=== PATIENT | female | born 1950 | race Caucasian/White ===

== ENCOUNTER 2017-12-20 12:10 | Inpatient (IN) | payer MEDICARE, OTHER ==
[~2017-12-20] VITALS: Ht 160 cm; Wt 77.8 kg
[~2017-12-20 12:10] MED LIST: AMLO5TAB2 PO; AMOX1TAB64 PO; INDO25CA PO; INDO50CA PO; LACT1CAP35 PO; LACT1CAP43 PO; LISI1TAB5 PO; MULT1TAB11 PO; ONDA8TAB15 PO; OXYC-302 PO; OXYC1TAB8 PO; PARO20TA98 PO
[2017-12-20] MEDS ORDERED: SODIUM CHLORIDE 0.9% 1,000ML IVBOLUS ONE ×2 (12:30→13:30)
[2017-12-20] MEDS ORDERED: SODIUM CHLORIDE FLUSH 10ML SYR IVF ONE (12:30)
[2017-12-20] MEDS ORDERED: EPINEPHRINE SYRINGE 0.1 MG/ML, 10ML ONE (12:51)
[2017-12-20 12:58] LABS: BASOPHILS # (AUTO) 0.04 x10^3/uL (0-0.1); BASOPHILS % (AUTO) 0 % (0-1); EOSINOPHILS # (AUTO) 0.02 x10^3/uL (0-0.4); EOSINOPHILS % (AUTO) 0 % (1-7); LYMPHOCYTES # (AUTO) 2.97 x10^3/uL (1-3.4); LYMPHOCYTES % (AUTO) 22 % (22-44); MD NO; MEAN CORPUSCULAR HEMOGLOBIN 33.1 pg (27.0-34.8); MEAN CORPUSCULAR HGB CONC 33.3 g/dL (32.4-35.8); MEAN CORPUSCULAR VOLUME 99.4 fL (80-100); MONOCYTES # (AUTO) 0.26 x10^3/uL (0.2-0.8); MONOCYTES % (AUTO) 2 % (2-9); NEUTROPHILS # (AUTO) 10.25 x10^3/uL (1.8-6.8); NEUTROPHILS % (AUTO) 76 % (42-75); PLATELET COUNT 157 x10^3/uL (130-400); RED BLOOD COUNT 5.36 x10^6/uL (3.82-5.3); RED CELL DISTRIBUTION WIDTH 14.7 % (9.6-15.2)
[2017-12-20] MEDS ORDERED: PLEASE ENTER HEIGHT AND WEIGHT MC SCH (13:00)
[2017-12-20 13:09] LABS: ALBUMIN 3.4 g/dL (3.4-5.0); ANION GAP 14 mmol/L (5-15); CALCIUM 9.1 mg/dL (8.5-10.1); CHLORIDE 105 mmol/L (98-107)
[2017-12-20 13:12] LABS: ALANINE AMINOTRANSFERASE 43 U/L (12-78); ALKALINE PHOSPHATASE 110 U/L (45-117); BILIRUBIN,TOTAL 0.8 mg/dL (0.2-1.0); CREATININE 1.43 mg/dL (0.55-1.02); TROPONIN I < 0.015 ng/mL (0.000-0.045)
[2017-12-20] MEDS ORDERED: OMNIPAQUE 350 MG/ML, 100ML BOTTLE ONE (13:15)
[2017-12-20 13:37] LABS: INTERNATIONAL NORMALIZED RATIO 1.15 (0.93-1.1); PROTHROMBIN TIME 11.8 Seconds (9.6-11.5)
[2017-12-20] MEDS ORDERED: MIDAZOLAM 10MG/2 ML ONE (13:49)
[2017-12-20] MEDS ORDERED: FENTANYL PF 250 MCG/5ML ONE ×4 (13:49→13:51)
[2017-12-20] MEDS ORDERED: EPINEPHRINE 2 MG in SODIUM CHLORIDE 0.9% 248 ML IV SCH (14:00)
[2017-12-20] MEDS ORDERED: VANCOMYCIN 1,200 MG in SODIUM CHLORIDE 0.9% 250 ML IV PRN (14:00)
[2017-12-20] MEDS ORDERED: CEFUROXIME 1.5 GM in SODIUM CHLORIDE 0.9% 50 ML IVPB PRN (14:00)
[2017-12-20] MEDS ORDERED: MANNITOL PMX 20% 500 ML IVPB PRN (14:00)
[2017-12-20] MEDS ORDERED: POTASSIUM CHLORIDE 80 MEQ, SODIUM BICARBONATE 8.4% 10 MEQ, MAGNESIUM SULFATE 0.5 GM, LI... IV PRN (14:00)
[2017-12-20] MEDS ORDERED: DEXMEDETOMIDINE 200 MCG in SODIUM CHLORIDE 0.9% 48 ML IV SCH (14:00)
[2017-12-20] MEDS ORDERED: VANCOMYCIN 1,400 MG in SODIUM CHLORIDE 0.9% 250 ML IV PRN (14:00)
[2017-12-20] MEDS ORDERED: PHENYLEPHRINE 10 MG in SODIUM CHLORIDE 0.9% 249 ML IV PRN ×2 (14:00→18:56)
[2017-12-20] MEDS ORDERED: ALBUMIN HUMAN 5% 500 ML IV PRN (14:00)
[2017-12-20] MEDS ORDERED: REGULAR INSULIN 62.5 UNITS in SODIUM CHLORIDE 0.9% 249.375 ML IV PRN ×2 (14:00→18:56)
[2017-12-20] MEDS ORDERED: ROCURONIUM 10MG/ML,5ML ONE ×3 (16:11→16:12)
[2017-12-20] MEDS ORDERED: AMINOCAPROIC ACID 250 MG/ML, 20ML ONE ×2 (16:12)
[2017-12-20] MEDS ORDERED: PROPOFOL 10 MG/ML, 20ML ONE (16:12)
[2017-12-20] MEDS ORDERED: NITROGLYCERIN/D5W PMX 250 ML ONE (16:12)
[2017-12-20] MEDS ORDERED: CALCIUM CHLORIDE 10%, 10ML SYR ONE (16:13)
[2017-12-20] MEDS ORDERED: PROTAMINE SULFATE 10 MG/ML, 25ML ONE ×2 (16:13)
[2017-12-20] MEDS ORDERED: THROMBIN 5,000 UNIT VIAL TP ONE (17:18)
[2017-12-20] MEDS ORDERED: NOVOSEVEN RT (FACTOR VIIA) RECOMB 1,000 MCG IVPush ONE (18:30)
[2017-12-20] MEDS ORDERED: HYDROmorphone 2 MG/ML, 1ML ONE (18:35)
[2017-12-20] MEDS ORDERED: SODIUM CHLORIDE 0.9% 1,000 ML IV PRN (18:56)
[2017-12-20] MEDS ORDERED: LACTATED RINGERS 1,000 ML IV SCH (18:56)
[2017-12-20] MEDS ORDERED: NITROGLYCERIN/D5W PMX 250 ML IV PRN (18:56)
[2017-12-20] MEDS ORDERED: INSULIN REGULAR 100 UNITS/ML, 3ML VIAL IVPush PRN (19:00)
[2017-12-20] MEDS ORDERED: BISACODYL 10 MG SUPP PR PRN (19:00)
[2017-12-20] MEDS ORDERED: PROCHLORPERAZINE 5 MG/ML, 2ML IVPush PRN (19:00)
[2017-12-20] MEDS ORDERED: SODIUM BICARB 8.4%, 50ML SYRINGE IV PRN (19:00)
[2017-12-20] MEDS ORDERED: HYDROcodone/APAP 10/325 MG TABLET PO PRN (19:00)
[2017-12-20] MEDS ORDERED: DEXTROSE 50%, 50ML SYRINGE IVPush PRN (19:00)
[2017-12-20] MEDS ORDERED: BISACODYL 5 MG EC TABLET PO PRN (19:00)
[2017-12-20] MEDS ORDERED: ONDANSETRON 2MG/ML, 2ML IVPush PRN (19:00)
[2017-12-20] MEDS ORDERED: GLUCAGON 1 MG IM PRN (19:00)
[2017-12-20] MEDS ORDERED: EPINEPHRINE 2 MG in SODIUM CHLORIDE 0.9% 248 ML IV PRN (19:00)
[2017-12-20] MEDS ORDERED: MIDAZOLAM 1 MG/ML, 5ML IVPush PRN (19:00)
[2017-12-20] MEDS ORDERED: ACETAMINOPHEN 650 MG SUPP PR PRN (19:00)
[2017-12-20] MEDS ORDERED: MAGNESIUM SULFATE 1 GM in SODIUM CHLORIDE 0.9% 50 ML IVPB SCH (19:00)
[2017-12-20] MEDS ORDERED: CEFUROXIME 1.5 GM in SODIUM CHLORIDE 0.9% 50 ML IVPB SCH (19:00)
[2017-12-20] MEDS ORDERED: DEXTROSE 4 GM TAB.CHEW PO PRN (19:00)
[2017-12-20] MEDS: DOCUSATE 100 MG CAPSULE PO SCH ×2 (19:08→21:26)
[2017-12-20] MEDS ORDERED: HEPARIN 1,000 UNITS/ML, 30ML ONE (19:16)
[2017-12-20] MEDS ORDERED: SODIUM BICARB 8.4%, 50ML SYRINGE ONE (19:17)
[2017-12-20] MEDS ORDERED: SODIUM BICARBONATE 1 MEQ/ML, 50ML VIAL ONE (19:17)
[2017-12-20] MEDS ORDERED: LIDOCAINE 2% 100MG/5ML SYRINGE ONE (19:18)
[2017-12-20] MEDS ORDERED: ALBUMIN HUMAN 25% 50 ML ONE (19:18)
[2017-12-20] MEDS ORDERED: ALBUTEROL/IPRATROPIUM 2.5MG/0.5MG, 3 ML ONE (19:28)
[2017-12-20] MEDS ORDERED: ESMOLOL/NS PMX 250 ML IV PRN (19:30)
[2017-12-20 19:33] LABS: GLUCOSE BY BLOOD GAS ANALYZER 151 mg/dL (70-110); HEMOGLOBIN BY BLOOD GAS ANALYZ 13.3 g/dL (14.0-18.0); POTASSIUM BY BLOOD GAS ANALYZR 3.1 mmol/L (3.6-5.5)
[2017-12-20] MEDS ORDERED: POTASSIUM CHLORIDE 30 MEQ in SODIUM CHLORIDE 0.9% 100 ML IV ONE (20:00)
[2017-12-20] MEDS: KSCALE TO 4.5 IV SCH (20:11)
[2017-12-20] MEDS: DEXMEDETOMIDINE 200 MCG in SODIUM CHLORIDE 0.9% 48 ML IV PRN (20:45)
[2017-12-20] MEDS: INSULIN LISPRO 100 UNITS/ML, PEN SQ-INSULIN SCH (21:26)
[2017-12-20] MEDS: MUPIROCIN OINT 2%, 22GM NAS SCH (22:37)
[2017-12-20] MEDS: SODIUM CHLORIDE FLUSH 10ML SYR IVF SCH (22:37)
[2017-12-21] MEDS: CEFUROXIME 1.5 GM in SODIUM CHLORIDE 0.9% 50 ML IVPB SCH ×2 (00:34→13:15)
[2017-12-21] MEDS: KSCALE TO 4.5 IV SCH ×4 (01:21→13:00)
[2017-12-21 01:40] LABS: MICROSCOPIC AUTO
[2017-12-21 01:42] LABS: CULTURE INDICATED? NO
[2017-12-21] MEDS: morphine SULFATE 10 MG/ML, 1ML IVPush PRN ×3 (01:54→05:49)
[2017-12-21] MEDS: DEXMEDETOMIDINE 200 MCG in SODIUM CHLORIDE 0.9% 48 ML IV PRN (02:12)
[2017-12-21] MEDS ORDERED: ALBUTEROL/IPRATROPIUM 2.5MG/0.5MG, 3 ML ONE (02:15)
[2017-12-21 04:40] LABS: BASOPHILS # (AUTO) 0.02 x10^3/uL (0-0.1); BASOPHILS % (AUTO) 0 % (0-1); EOSINOPHILS % (AUTO) 0 % (1-7); LYMPHOCYTES # (AUTO) 0.56 x10^3/uL (1-3.4); LYMPHOCYTES % (AUTO) 5 % (22-44); MD NO; MEAN CORPUSCULAR HEMOGLOBIN 32.8 pg (27.0-34.8); MEAN CORPUSCULAR HGB CONC 33.3 g/dL (32.4-35.8); MEAN CORPUSCULAR VOLUME 98.7 fL (80-100); MEAN PLATELET VOLUME 8.7 fL (7.4-10.4); MONOCYTES # (AUTO) 0.73 x10^3/uL (0.2-0.8); MONOCYTES % (AUTO) 6 % (2-9); NEUTROPHILS # (AUTO) 10.46 x10^3/uL (1.8-6.8); NEUTROPHILS % (AUTO) 89 % (42-75); PLATELET COUNT 142 x10^3/uL (130-400); RED BLOOD COUNT 3.69 x10^6/uL (3.82-5.3); RED CELL DISTRIBUTION WIDTH 15.2 % (9.6-15.2)
[2017-12-21 04:51] LABS: ANION GAP 5 mmol/L (5-15); CALCIUM 7.2 mg/dL (8.5-10.1); CHLORIDE 112 mmol/L (98-107)
[2017-12-21 04:52] LABS: CREATININE 1.32 mg/dL (0.55-1.02)
[2017-12-21 05:00] VITALS: BP 112/58
[2017-12-21] MEDS ORDERED: ALBUTEROL SULFATE 2.5 MG/3 ML ONE (06:14)
[2017-12-21] MEDS: INSULIN LISPRO 100 UNITS/ML, PEN SQ-INSULIN SCH (07:00)
[2017-12-21] MEDS ORDERED: INSULIN LISPRO 100 UNITS/ML, PEN SQ-INSULIN PRN (07:30)
[2017-12-21] MEDS ORDERED: POTASSIUM CHLORIDE PMX 100 ML IV ONE ×2 (08:30)
[2017-12-21] MEDS: DOCUSATE 100 MG CAPSULE PO SCH ×2 (09:00→20:19)
[2017-12-21] MEDS: METOPROLOL TARTRATE 25 MG TABLET PO/NG SCH ×2 (09:00→20:19)
[2017-12-21] MEDS: MUPIROCIN OINT 2%, 22GM NAS SCH ×2 (10:33→20:20)
[2017-12-21] MEDS: SODIUM CHLORIDE FLUSH 10ML SYR IVF SCH ×2 (10:34→20:20)
[2017-12-21] MEDS: LACTATED RINGERS 1,000 ML IV PRN ×2 (12:00→14:13)
[2017-12-21] MEDS: ASPIRIN 81 MG TABLET EC PO SCH (12:31)
[2017-12-21] MEDS: OXYcodone IR 5MG TABLET PO PRN (12:31)
[2017-12-21] MEDS: PAROXETINE 20 MG TABLET PO SCH (12:31)
[2017-12-21] MEDS: HYDROcodone/APAP 5/325 TABLET PO PRN ×2 (15:28→21:38)
[2017-12-21] MEDS ORDERED: MAGNESIUM SULFATE 1 GM in STERILE WATER 25 ML IVPB SCH (15:30)
[2017-12-21] MEDS: MAGNESIUM SULFATE 1 GM in STERILE WATER 25 ML IVPB SCH (20:00)
[2017-12-21] MEDS: CHLORHEXIDINE 15 ML BOTTLE MM SCH (20:18)
[2017-12-22] MEDS: HYDROcodone/APAP 5/325 TABLET PO PRN ×3 (02:06→18:12)
[2017-12-22 04:00] VITALS: BP 100/52
[2017-12-22] MEDS: LACTATED RINGERS 1,000 ML IV PRN (04:16)
[2017-12-22] MEDS: OXYcodone IR 5MG TABLET PO PRN (04:33)
[2017-12-22 05:44] LABS: MEAN CORPUSCULAR HEMOGLOBIN 32.6 pg (27.0-34.8); MEAN CORPUSCULAR HGB CONC 32.8 g/dL (32.4-35.8); MEAN CORPUSCULAR VOLUME 99.3 fL (80-100); MEAN PLATELET VOLUME 9.6 fL (7.4-10.4); PLATELET COUNT 93 x10^3/uL (130-400); RED BLOOD COUNT 3.55 x10^6/uL (3.82-5.3); RED CELL DISTRIBUTION WIDTH 15.8 % (9.6-15.2)
[2017-12-22 05:51] LABS: CHLORIDE 109 mmol/L (98-107)
[2017-12-22 05:55] LABS: ANION GAP 6 mmol/L (5-15); CALCIUM 7.2 mg/dL (8.5-10.1); CREATININE 1.04 mg/dL (0.55-1.02)
[2017-12-22 06:10] LABS: MD YES
[2017-12-22 06:12] LABS: BAND#(MANUAL) 0.12 x10^3/uL; BANDS%(MANUAL) 1 % (0-7); LYMPH#(MANUAL) 3.07 x10^3/uL (1-3.4); LYMPHS% (MANUAL) 26 % (22-44); MONOS#(MANUAL) 0.94 x10^3/uL (0.3-2.7); MONOS% (MANUAL) 8 % (2-9); SEG#(MANUAL) 7.67 x10^3/uL (1.8-6.8); SEGS% (MANUAL) 65 % (42-75)
[2017-12-22 06:13] LABS: <PLATELET ESTIMATE> DECREASED; <PLT MORPHOLOGY> NORMAL PLT MORPH; ANISOCYTOSIS 1+
[2017-12-22] MEDS ORDERED: AMLODIPINE 5 MG TABLET PO ONE (08:30)
[2017-12-22] MEDS ORDERED: ENOXAPARIN 40 MG/0.4 ML SQ SCH (09:00)
[2017-12-22] MEDS ORDERED: POTASSIUM CHLORIDE 10 MEQ TABLET.ER PO SCH (09:00)
[2017-12-22] MEDS ORDERED: FUROSEMIDE 20 MG/2 ML IV SCH (09:00)
[2017-12-22] MEDS: CHLORHEXIDINE 15 ML BOTTLE MM SCH ×2 (09:49→21:24)
[2017-12-22] MEDS: DOCUSATE 100 MG CAPSULE PO SCH ×2 (09:49→21:24)
[2017-12-22] MEDS: MUPIROCIN OINT 2%, 22GM NAS SCH ×2 (09:49→21:23)
[2017-12-22] MEDS: FUROSEMIDE 20 MG/2 ML IV SCH ×2 (09:49→21:23)
[2017-12-22] MEDS: METOPROLOL TARTRATE 25 MG TABLET PO/NG SCH ×2 (09:50→21:22)
[2017-12-22] MEDS: ASPIRIN 81 MG TABLET EC PO SCH (09:50)
[2017-12-22] MEDS: POTASSIUM CHLORIDE 20 MEQ TAB.ER.PRT PO SCH (09:50)
[2017-12-22] MEDS: PAROXETINE 20 MG TABLET PO SCH (09:50)
[2017-12-22] MEDS: SODIUM CHLORIDE FLUSH 10ML SYR IVF SCH ×2 (09:51→21:23)
[2017-12-22] MEDS ORDERED: ALBUTEROL SULFATE 2.5 MG/3 ML NPPB PRN (17:00)
[2017-12-22] MEDS ORDERED: INSULIN LISPRO 100 UNITS/ML, PEN SQ-INSULIN PRN (18:00)
[2017-12-22] MEDS: INSULIN LISPRO 100 UNITS/ML, PEN SQ-INSULIN SCH (21:21)
[2017-12-22] MEDS: MAGNESIUM SULFATE 1 GM in STERILE WATER 25 ML IVPB SCH (21:23)
[2017-12-23] MEDS ORDERED: DIPHENHYDRAMINE 50 MG/ML, 1ML IVPush ONE (01:00)
[2017-12-23 04:00] VITALS: BP 159/84
[2017-12-23 05:37] LABS: CHLORIDE 101 mmol/L (98-107)
[2017-12-23 05:41] LABS: ANION GAP 11 mmol/L (5-15); CALCIUM 7.9 mg/dL (8.5-10.1); CREATININE 0.74 mg/dL (0.55-1.02)
[2017-12-23 06:05] LABS: BASOPHILS # (AUTO) 0.02 x10^3/uL (0-0.1); BASOPHILS % (AUTO) 0 % (0-1); EOSINOPHILS # (AUTO) 0.01 x10^3/uL (0-0.4); EOSINOPHILS % (AUTO) 0 % (1-7); LYMPHOCYTES # (AUTO) 1.09 x10^3/uL (1-3.4); LYMPHOCYTES % (AUTO) 10 % (22-44); MD SCAN; MEAN CORPUSCULAR VOLUME 97.3 fL (80-100); MEAN PLATELET VOLUME 10.3 fL (7.4-10.4); MONOCYTES % (AUTO) 6 % (2-9); NEUTROPHILS # (AUTO) 9.15 x10^3/uL (1.8-6.8); NEUTROPHILS % (AUTO) 84 % (42-75); PLATELET COUNT 96 x10^3/uL (130-400); RED BLOOD COUNT 3.65 x10^6/uL (3.82-5.3); RED CELL DISTRIBUTION WIDTH 14.8 % (9.6-15.2)
[2017-12-23] MEDS: INSULIN LISPRO 100 UNITS/ML, PEN SQ-INSULIN SCH ×4 (07:00→19:56)
[2017-12-23] MEDS: PAROXETINE 20 MG TABLET PO SCH (07:46)
[2017-12-23] MEDS: ASPIRIN 81 MG TABLET EC PO SCH (07:46)
[2017-12-23] MEDS: DOCUSATE 100 MG CAPSULE PO SCH ×2 (07:46→19:56)
[2017-12-23] MEDS: FUROSEMIDE 20 MG/2 ML IV SCH ×2 (07:46→08:53)
[2017-12-23] MEDS: METOPROLOL TARTRATE 25 MG TABLET PO/NG SCH ×3 (07:46→19:58)
[2017-12-23] MEDS: POTASSIUM CHLORIDE 20 MEQ TAB.ER.PRT PO SCH (07:46)
[2017-12-23] MEDS: CHLORHEXIDINE 15 ML BOTTLE MM SCH (07:48)
[2017-12-23] MEDS: SODIUM CHLORIDE FLUSH 10ML SYR IVF SCH ×2 (07:48→21:00)
[2017-12-23] MEDS: MUPIROCIN OINT 2%, 22GM NAS SCH ×2 (07:54→19:55)
[2017-12-23] MEDS ORDERED: POTASSIUM CHLORIDE 20 MEQ TAB.ER.PRT PO ONE (08:30)
[2017-12-23] MEDS: LISINOPRIL 5 MG TABLET PO SCH ×2 (09:00→19:57)
[2017-12-23] MEDS: ACETAMINOPHEN 325 MG TABLET PO PRN ×2 (12:00→19:57)
[2017-12-23] MEDS: MAGNESIUM SULFATE 1 GM in STERILE WATER 25 ML IVPB SCH (20:35)
[2017-12-24 04:00] VITALS: BP 123/70
[2017-12-24 05:32] LABS: CHLORIDE 103 mmol/L (98-107)
[2017-12-24 05:45] LABS: ANION GAP 7 mmol/L (5-15); CALCIUM 7.7 mg/dL (8.5-10.1); CREATININE 0.61 mg/dL (0.55-1.02)
[2017-12-24 06:50] LABS: BASOPHILS # (AUTO) 0.01 x10^3/uL (0-0.1); BASOPHILS % (AUTO) 0 % (0-1); EOSINOPHILS # (AUTO) 0.07 x10^3/uL (0-0.4); EOSINOPHILS % (AUTO) 1 % (1-7); LYMPHOCYTES # (AUTO) 1.82 x10^3/uL (1-3.4); LYMPHOCYTES % (AUTO) 15 % (22-44); MD SCAN; MEAN CORPUSCULAR HGB CONC 33.6 g/dL (32.4-35.8); MEAN CORPUSCULAR VOLUME 98.3 fL (80-100); MEAN PLATELET VOLUME 10.4 fL (7.4-10.4); MONOCYTES # (AUTO) 0.98 x10^3/uL (0.2-0.8); MONOCYTES % (AUTO) 8 % (2-9); NEUTROPHILS # (AUTO) 8.92 x10^3/uL (1.8-6.8); NEUTROPHILS % (AUTO) 76 % (42-75); PLATELET COUNT 128 x10^3/uL (130-400); RED BLOOD COUNT 3.74 x10^6/uL (3.82-5.3); RED CELL DISTRIBUTION WIDTH 15.1 % (9.6-15.2)
[2017-12-24] MEDS: INSULIN LISPRO 100 UNITS/ML, PEN SQ-INSULIN SCH ×2 (07:00→11:59)
[2017-12-24] MEDS: DOCUSATE 100 MG CAPSULE PO SCH ×2 (09:00→21:22)
[2017-12-24] MEDS ORDERED: MAGNESIUM HYDROXIDE 8%, 30ML UDC PO PRN (09:00)
[2017-12-24] MEDS: FUROSEMIDE 20 MG/2 ML IV SCH (09:15)
[2017-12-24] MEDS: METOPROLOL TARTRATE 25 MG TABLET PO/NG SCH ×2 (09:16→21:21)
[2017-12-24] MEDS: MUPIROCIN OINT 2%, 22GM NAS SCH ×2 (09:16→21:21)
[2017-12-24] MEDS: ASPIRIN 81 MG TABLET EC PO SCH (09:16)
[2017-12-24] MEDS: POTASSIUM CHLORIDE 20 MEQ TAB.ER.PRT PO SCH (09:16)
[2017-12-24] MEDS: SODIUM CHLORIDE FLUSH 10ML SYR IVF SCH ×3 (09:17→21:22)
[2017-12-24] MEDS: LISINOPRIL 10 MG TABLET PO SCH ×2 (09:17→21:21)
[2017-12-24] MEDS: PAROXETINE 20 MG TABLET PO SCH (09:17)
[2017-12-24 12:35] VITALS: BP 135/83
[2017-12-24] MEDS: ACETAMINOPHEN 325 MG TABLET PO PRN ×2 (13:49→18:34)
[2017-12-24 19:50] VITALS: BP 132/78
[2017-12-25] VITALS (7 sets, daily range): BP systolic 117–176; BP diastolic 73–97
[2017-12-25 04:56] LABS: BASOPHILS # (AUTO) 0.02 x10^3/uL (0-0.1); BASOPHILS % (AUTO) 0 % (0-1); EOSINOPHILS # (AUTO) 0.09 x10^3/uL (0-0.4); EOSINOPHILS % (AUTO) 1 % (1-7); LYMPHOCYTES # (AUTO) 1.34 x10^3/uL (1-3.4); LYMPHOCYTES % (AUTO) 18 % (22-44); MD NO; MEAN CORPUSCULAR HEMOGLOBIN 32.8 pg (27.0-34.8); MEAN CORPUSCULAR HGB CONC 33.7 g/dL (32.4-35.8); MEAN CORPUSCULAR VOLUME 97.1 fL (80-100); MEAN PLATELET VOLUME 9.8 fL (7.4-10.4); MONOCYTES # (AUTO) 0.59 x10^3/uL (0.2-0.8); MONOCYTES % (AUTO) 8 % (2-9); NEUTROPHILS # (AUTO) 5.41 x10^3/uL (1.8-6.8); NEUTROPHILS % (AUTO) 73 % (42-75); PLATELET COUNT 133 x10^3/uL (130-400); RED BLOOD COUNT 3.99 x10^6/uL (3.82-5.3); RED CELL DISTRIBUTION WIDTH 14.6 % (9.6-15.2)
[2017-12-25 05:05] LABS: ANION GAP 6 mmol/L (5-15); CALCIUM 7.9 mg/dL (8.5-10.1); CHLORIDE 102 mmol/L (98-107); CREATININE 0.66 mg/dL (0.55-1.02)
[2017-12-25] MEDS: LISINOPRIL 10 MG TABLET PO SCH ×3 (07:43→21:23)
[2017-12-25] MEDS: ASPIRIN 81 MG TABLET EC PO SCH (07:43)
[2017-12-25] MEDS: PAROXETINE 20 MG TABLET PO SCH (07:43)
[2017-12-25] MEDS: ACETAMINOPHEN 325 MG TABLET PO PRN ×2 (07:43→15:31)
[2017-12-25] MEDS: METOPROLOL TARTRATE 25 MG TABLET PO/NG SCH ×2 (07:43→21:22)
[2017-12-25] MEDS: POTASSIUM CHLORIDE 20 MEQ TAB.ER.PRT PO SCH (07:43)
[2017-12-25] MEDS: SODIUM CHLORIDE FLUSH 10ML SYR IVF SCH ×2 (07:44→21:27)
[2017-12-25] MEDS: DOCUSATE 100 MG CAPSULE PO SCH (07:44)
[2017-12-25] MEDS ORDERED: POTASSIUM CHLORIDE 20 MEQ TAB.ER.PRT PO ONE (09:00)
[2017-12-25] MEDS: FUROSEMIDE 20 MG/2 ML IV SCH (10:25)
[2017-12-25] MEDS: MUPIROCIN OINT 2%, 22GM NAS SCH (10:25)
[2017-12-25] MEDS ORDERED: LISINOPRIL 10 MG TABLET PO ONE (11:30)
[2017-12-25] MEDS: AMLODIPINE 5 MG TABLET PO SCH (13:38)
[2017-12-25] MEDS ORDERED: LOPE2CAP PO (15:26)
[2017-12-25] MEDS ORDERED: ATEN25TA PO (15:26)
[2017-12-25] MEDS: LOPERAMIDE 2 MG CAPSULE PO PRN ×2 (18:05→18:40)
[2017-12-25] MEDS ORDERED: DOCUSATE 100 MG CAPSULE PO SCH (21:00)
[2017-12-26 01:48] VITALS: BP 162/95
[2017-12-26 04:10] VITALS: BP 147/87
[2017-12-26 05:09] LABS: ANION GAP 8 mmol/L (5-15); CALCIUM 8.4 mg/dL (8.5-10.1); CHLORIDE 101 mmol/L (98-107)
[2017-12-26 05:10] LABS: CREATININE 0.68 mg/dL (0.55-1.02)
[2017-12-26 08:01] VITALS: BP 115/77
[2017-12-26] MEDS: FUROSEMIDE 20 MG/2 ML IV SCH (08:23)
[2017-12-26] MEDS: POTASSIUM CHLORIDE 20 MEQ TAB.ER.PRT PO SCH (08:24)
[2017-12-26] MEDS: PAROXETINE 20 MG TABLET PO SCH (08:24)
[2017-12-26] MEDS: METOPROLOL TARTRATE 25 MG TABLET PO/NG SCH (08:24)
[2017-12-26] MEDS: AMLODIPINE 5 MG TABLET PO SCH (08:24)
[2017-12-26] MEDS: ASPIRIN 81 MG TABLET EC PO SCH (08:24)
[2017-12-26] MEDS: LISINOPRIL 10 MG TABLET PO SCH (08:24)
[2017-12-26] MEDS: SODIUM CHLORIDE FLUSH 10ML SYR IVF SCH (08:29)
[2017-12-26] MEDS ORDERED: LISI-170 PO (08:48)
[2017-12-26] MEDS ORDERED: ASPI-621 PO (08:48)
[2017-12-26] MEDS ORDERED: METO25TA35 PO/NG (08:48)
[2017-12-26] MEDS ORDERED: ACET650S12 PO (08:48)
[2017-12-26] MEDS ORDERED: AMLO5TAB2 PO (08:48)
== END 2017-12-26 13:30 | disposition home health service (06) | DRG 219 ==
LOC: ED 13:44 → EDIP 14:12 → CCU 14:40 → 5SO 12-24 11:19 → DCLOUNGE 12-26 13:12
PROVIDERS: ADMIT Thoracic Surgery (Cardiothoracic Vascular Surgery); ATTEND Thoracic Surgery (Cardiothoracic Vascular Surgery)
PROC: 5A1221Z Performance of Cardiac Output, Continuous (ICD-10-PCS; 2017-12-20)
PROC: 30233L1 Transfusion of Nonautologous Fresh Plasma into Peripheral Vein, Percutaneous Approach (ICD-10-PCS; 2017-12-20)
PROC: 30233N1 Transfusion of Nonautologous Red Blood Cells into Peripheral Vein, Percutaneous Approach (ICD-10-PCS; 2017-12-20)
PROC: 30233R1 Transfusion of Nonautologous Platelets into Peripheral Vein, Percutaneous Approach (ICD-10-PCS; 2017-12-20)
PROC: 30233M1 Transfusion of Nonautologous Plasma Cryoprecipitate into Peripheral Vein, Percutaneous Approach (ICD-10-PCS; 2017-12-20)
PROC: 30233K1 Transfusion of Nonautologous Frozen Plasma into Peripheral Vein, Percutaneous Approach (ICD-10-PCS; 2017-12-20)
PROC: 02RX0JZ Replacement of Thoracic Aorta, Ascending/Arch with Synthetic Substitute, Open Approach (ICD-10-PCS; principal; 2017-12-20 12:30)
DX: I71.01 Dissection of thoracic aorta (principal); J96.00 Acute respiratory failure, unspecified whether with hypoxia or hypercapnia; I31.4 Cardiac tamponade; D62 Acute posthemorrhagic anemia; I31.2 Hemopericardium, not elsewhere classified; F17.200 Nicotine dependence, unspecified, uncomplicated; I10 Essential (primary) hypertension; Z51.5 Encounter for palliative care; M10.9 Gout, unspecified; N28.1 Cyst of kidney, acquired; I73.9 Peripheral vascular disease, unspecified; G47.33 Obstructive sleep apnea (adult) (pediatric); Z91.19 Patient's noncompliance with other medical treatment and regimen
CPT/HCPCS: 36415; 36430; 36600; 70450; 71045; 71275; 80048; 80053; 81001; 82040; 82330; 82800; 82803; 82810; 82947; 82962; 83735; 83880; 84132; 84295; 84484; 85014; 85018; 85025; 85049; 85347; 85610; 85730; 86850; 86900; 86923; 87081; 88304; 93005; 93312; 93320; 93325; 94002; 94003; 94150; 94640; C1768; J0697; J1170; J1644; J1815; J2250; J2704; J2720; J3010; J3370; J3475; J3480; J3490; J7189; P9045; P9047; Q9967; C1751; C1760; J0171; J1200; J1940; J2270; J2370; J7030; J7050; J7120; P9012; P9016; P9017; P9035

== ENCOUNTER 2018-01-16 16:09 | Inpatient (IN) | payer MEDICARE, OTHER ==
[~2018-01-16] VITALS: Ht 157.5 cm; Wt 72.4 kg
[~2018-01-16 16:09] MED LIST changes: +ACET650S12 PO; +ASPI-621 PO; +ATEN25TA PO; -INDO25CA PO; +INDO25CA5 PO; -INDO50CA PO; +INDO50CA5 PO; +LISI-170 PO; +LOPE2CAP PO; +METO25TA35 PO/NG
[2018-01-16] MEDS ORDERED: SODIUM CHLORIDE FLUSH 10ML SYR IVF ONE (16:30)
[2018-01-16] MEDS ORDERED: SODIUM CHLORIDE 0.9% 1,000ML IVBOLUS ONE (16:30)
[2018-01-16] MEDS ORDERED: ASPIRIN 325 MG TABLET PO ONE (17:00)
[2018-01-16] MEDS ORDERED: ASPIRIN 81 MG TABLET CHEW ONE (17:14)
[2018-01-16 17:17] LABS: BASOPHILS % (AUTO) 1 % (0-1); EOSINOPHILS # (AUTO) 0.52 x10^3/uL (0-0.4); EOSINOPHILS % (AUTO) 6 % (1-7); LYMPHOCYTES # (AUTO) 2.79 x10^3/uL (1-3.4); LYMPHOCYTES % (AUTO) 33 % (22-44); MD NO; MEAN CORPUSCULAR HEMOGLOBIN 31.6 pg (27.0-34.8); MEAN CORPUSCULAR HGB CONC 33.5 g/dL (32.4-35.8); MEAN CORPUSCULAR VOLUME 94.5 fL (80-100); MEAN PLATELET VOLUME 9.3 fL (7.4-10.4); MONOCYTES # (AUTO) 0.53 x10^3/uL (0.2-0.8); MONOCYTES % (AUTO) 6 % (2-9); NEUTROPHILS # (AUTO) 4.46 x10^3/uL (1.8-6.8); NEUTROPHILS % (AUTO) 53 % (42-75); PLATELET COUNT 359 x10^3/uL (130-400); RED BLOOD COUNT 4.15 x10^6/uL (3.82-5.3); RED CELL DISTRIBUTION WIDTH 14.9 % (9.6-15.2)
[2018-01-16 17:26] LABS: ALANINE AMINOTRANSFERASE 27 U/L (12-78); ALBUMIN 3.3 g/dL (3.4-5.0); ANION GAP 9 mmol/L (5-15); CALCIUM 9.9 mg/dL (8.5-10.1); CHLORIDE 107 mmol/L (98-107); CREATININE 1.77 mg/dL (0.55-1.02)
[2018-01-16 17:28] LABS: ALKALINE PHOSPHATASE 152 U/L (45-117); BILIRUBIN,TOTAL 0.3 mg/dL (0.2-1.0); TOTAL PROTEIN 7.8 g/dL (6.4-8.2)
[2018-01-16 17:30] LABS: TROPONIN I < 0.015 ng/mL (0.000-0.045)
[2018-01-16] MEDS ORDERED: OMNIPAQUE 350 MG/ML, 100ML BOTTLE ONE (17:52)
[2018-01-16] MEDS ORDERED: ONDANSETRON 2MG/ML, 2ML IVPush ONE (18:00)
[2018-01-16] MEDS ORDERED: HEPARIN 25,000 UNITS/500ML PMX 500 ML IV PRN (19:30)
[2018-01-16] MEDS ORDERED: HEPARIN 5,000 UNITS/ML, 1ML IV PRN (19:30)
[2018-01-16] MEDS ORDERED: HEPARIN 5,000 UNITS/ML, 1ML IV ONE (19:30)
[2018-01-16] MEDS ORDERED: HEPARIN 25,000 UNITS/500ML PMX 500 ML ONE (19:54)
[2018-01-16] MEDS ORDERED: HEPARIN 5,000 UNITS/ML, 1ML ONE (19:54)
[2018-01-16] MEDS ORDERED: SODIUM CHLORIDE 0.9% 1,000 ML IV SCH (19:55)
[2018-01-16] MEDS ORDERED: POLYETHYLENE GLYCOL 17 GM PACKET PO PRN (20:00)
[2018-01-16] MEDS ORDERED: ONDANSETRON 2MG/ML, 2ML IVPush PRN (20:00)
[2018-01-16] MEDS ORDERED: BISACODYL 10 MG SUPP PR PRN (20:00)
[2018-01-16] MEDS ORDERED: LABETALOL 5MG/ML, 20ML IVPush PRN (20:00)
[2018-01-16 21:15] VITALS: BP 102/64
[2018-01-16 23:31] LABS: TROPONIN I < 0.015 ng/mL (0.000-0.045)
[2018-01-17 00:53] VITALS: BP 102/69
[2018-01-17] MEDS: ACETAMINOPHEN 325 MG TABLET PO PRN ×2 (02:37→19:24)
[2018-01-17 03:18] LABS: CLOSTRIDIUM DIFFICILE ANTIGEN NEGATIVE; CLOSTRIDIUM DIFFICILE TOXIN NEGATIVE (Negative)
[2018-01-17 05:31] LABS: BASOPHILS # (AUTO) 0.04 x10^3/uL (0-0.1); BASOPHILS % (AUTO) 1 % (0-1); EOSINOPHILS % (AUTO) 7 % (1-7); LYMPHOCYTES # (AUTO) 2.23 x10^3/uL (1-3.4); LYMPHOCYTES % (AUTO) 29 % (22-44); MD NO; MEAN CORPUSCULAR HGB CONC 32.8 g/dL (32.4-35.8); MEAN CORPUSCULAR VOLUME 94.7 fL (80-100); MEAN PLATELET VOLUME 9.1 fL (7.4-10.4); MONOCYTES # (AUTO) 0.51 x10^3/uL (0.2-0.8); MONOCYTES % (AUTO) 7 % (2-9); NEUTROPHILS # (AUTO) 4.31 x10^3/uL (1.8-6.8); NEUTROPHILS % (AUTO) 57 % (42-75); PLATELET COUNT 243 x10^3/uL (130-400); RED BLOOD COUNT 3.93 x10^6/uL (3.82-5.3); RED CELL DISTRIBUTION WIDTH 14.8 % (9.6-15.2)
[2018-01-17 05:32] LABS: ALANINE AMINOTRANSFERASE 25 U/L (12-78); ALBUMIN 2.9 g/dL (3.4-5.0); ANION GAP 8 mmol/L (5-15); CALCIUM 8.6 mg/dL (8.5-10.1); CHLORIDE 112 mmol/L (98-107)
[2018-01-17 05:36] LABS: ALKALINE PHOSPHATASE 130 U/L (45-117); BILIRUBIN,TOTAL 0.3 mg/dL (0.2-1.0); TOTAL PROTEIN 6.8 g/dL (6.4-8.2); TROPONIN I < 0.015 ng/mL (0.000-0.045)
[2018-01-17] MEDS ORDERED: SODIUM CHLORIDE 0.9%, 250ML IVBOLUS ONE (07:00)
[2018-01-17 07:15] VITALS: BP 96/61
[2018-01-17 08:19] VITALS: BP 94/62
[2018-01-17] MEDS: SODIUM CHLORIDE 0.9% 1,000 ML IV SCH ×2 (08:23→16:36)
[2018-01-17] MEDS ORDERED: AMLODIPINE 5 MG TABLET PO SCH (09:00)
[2018-01-17] MEDS: SENNA/DOCUSATE TABLET PO SCH (09:00)
[2018-01-17] MEDS: LOPERAMIDE 2 MG CAPSULE PO SCH ×2 (09:00→15:21)
[2018-01-17] MEDS: ALLOPURINOL 100 MG TABLET PO SCH (09:00)
[2018-01-17] MEDS: COLCHICINE 0.6 MG TABLET PO SCH (09:00)
[2018-01-17] MEDS: PAROXETINE 20 MG TABLET PO SCH (09:07)
[2018-01-17] MEDS: ASPIRIN 81 MG TABLET EC PO SCH (09:07)
[2018-01-17] MEDS: LACTOBACILLUS CHEW TABLET PO SCH (09:07)
[2018-01-17] MEDS: MULTIVITAMINS/MINERALS TABLET PO SCH (09:07)
[2018-01-17 09:46] LABS: OCCULT BLOOD POSITIVE (NEGATIVE)
[2018-01-17] MEDS ORDERED: SODIUM POLYSTYRENE SULFONATE ORAL SUSP PO ONE (10:00)
[2018-01-17] MEDS ORDERED: AMLO10TA2 PO (10:08)
[2018-01-17] MEDS ORDERED: PARO20TA4 PO (10:08)
[2018-01-17] MEDS ORDERED: ASPI-621 PO (10:08)
[2018-01-17] MEDS ORDERED: METO25TA35 PO (10:08)
[2018-01-17] MEDS ORDERED: LISI-170 PO (10:08)
[2018-01-17] MEDS ORDERED: COLC0.6T37 PO (10:08)
[2018-01-17] MEDS ORDERED: FOLI-17 PO (10:08)
[2018-01-17] MEDS ORDERED: ALLO100T30 PO (10:08)
[2018-01-17 14:07] VITALS: BP 95/64
[2018-01-17 19:49] VITALS: BP 87/56
[2018-01-17] MEDS ORDERED: SODIUM CHLORIDE 0.9% 1,000 ML IV SCH (19:55)
[2018-01-18 01:24] VITALS: BP 119/72
[2018-01-18] MEDS: SODIUM CHLORIDE 0.9% 1,000 ML IV SCH (02:10)
[2018-01-18 05:12] LABS: BASOPHILS # (AUTO) 0.05 x10^3/uL (0-0.1); BASOPHILS % (AUTO) 1 % (0-1); EOSINOPHILS # (AUTO) 0.39 x10^3/uL (0-0.4); EOSINOPHILS % (AUTO) 7 % (1-7); LYMPHOCYTES # (AUTO) 2.12 x10^3/uL (1-3.4); LYMPHOCYTES % (AUTO) 36 % (22-44); MD NO; MEAN CORPUSCULAR HEMOGLOBIN 31.5 pg (27.0-34.8); MEAN CORPUSCULAR HGB CONC 33.3 g/dL (32.4-35.8); MEAN CORPUSCULAR VOLUME 94.8 fL (80-100); MEAN PLATELET VOLUME 8.8 fL (7.4-10.4); MONOCYTES # (AUTO) 0.46 x10^3/uL (0.2-0.8); MONOCYTES % (AUTO) 8 % (2-9); NEUTROPHILS % (AUTO) 48 % (42-75); PLATELET COUNT 251 x10^3/uL (130-400); RED BLOOD COUNT 3.48 x10^6/uL (3.82-5.3); RED CELL DISTRIBUTION WIDTH 14.7 % (9.6-15.2)
[2018-01-18 05:13] LABS: ANION GAP 8 mmol/L (5-15); CALCIUM 8.1 mg/dL (8.5-10.1); CHLORIDE 117 mmol/L (98-107); CREATININE 1.01 mg/dL (0.55-1.02)
[2018-01-18 08:21] VITALS: BP 117/71
[2018-01-18] MEDS: SENNA/DOCUSATE TABLET PO SCH (09:00)
[2018-01-18] MEDS: COLCHICINE 0.6 MG TABLET PO SCH (09:05)
[2018-01-18] MEDS: ASPIRIN 81 MG TABLET EC PO SCH (09:06)
[2018-01-18] MEDS: PAROXETINE 20 MG TABLET PO SCH (09:06)
[2018-01-18] MEDS: ALLOPURINOL 100 MG TABLET PO SCH (09:06)
[2018-01-18] MEDS: MULTIVITAMINS/MINERALS TABLET PO SCH (09:06)
[2018-01-18] MEDS: LACTOBACILLUS CHEW TABLET PO SCH (09:06)
[2018-01-18 14:37] VITALS: BP 110/67
[2018-01-18 19:23] VITALS: BP 109/72
[2018-01-18] MEDS: METOPROLOL TARTRATE 25 MG TABLET PO SCH (19:58)
[2018-01-18] MEDS: ACETAMINOPHEN 325 MG TABLET PO PRN (20:00)
[2018-01-18 22:06] VITALS: BP 102/64
[2018-01-19 02:02] VITALS: BP 133/79
[2018-01-19 07:55] VITALS: BP 129/80
[2018-01-19] MEDS: MULTIVITAMINS/MINERALS TABLET PO SCH (08:33)
[2018-01-19] MEDS: COLCHICINE 0.6 MG TABLET PO SCH (08:33)
[2018-01-19] MEDS: LACTOBACILLUS CHEW TABLET PO SCH (08:33)
[2018-01-19] MEDS: METOPROLOL TARTRATE 25 MG TABLET PO SCH (08:33)
[2018-01-19] MEDS: ALLOPURINOL 100 MG TABLET PO SCH (08:33)
[2018-01-19] MEDS: LOPERAMIDE 2 MG CAPSULE PO SCH (08:33)
[2018-01-19] MEDS: ASPIRIN 81 MG TABLET EC PO SCH (08:33)
[2018-01-19] MEDS: SENNA/DOCUSATE TABLET PO SCH (08:33)
[2018-01-19] MEDS: PAROXETINE 20 MG TABLET PO SCH (08:35)
== END 2018-01-19 09:45 | disposition home health service (06) | DRG 917 ==
LOC: ED 19:07 → EDIP 20:59 → 5SO 21:10
PROVIDERS: ADMIT Hospitalist; ATTEND Hospitalist
DX: T46.5X1A Poisoning by other antihypertensive drugs, accidental (unintentional), initial encounter (principal); N17.0 Acute kidney failure with tubular necrosis; E44.1 Mild protein-calorie malnutrition; J98.11 Atelectasis; J90 Pleural effusion, not elsewhere classified; I95.9 Hypotension, unspecified; F17.200 Nicotine dependence, unspecified, uncomplicated; I10 Essential (primary) hypertension; I70.8 Atherosclerosis of other arteries; I73.9 Peripheral vascular disease, unspecified; K44.9 Diaphragmatic hernia without obstruction or gangrene; K52.9 Noninfective gastroenteritis and colitis, unspecified; Z79.899 Other long term (current) drug therapy; Z82.49 Family history of ischemic heart disease and other diseases of the circulatory system; Z90.710 Acquired absence of both cervix and uterus; E87.5 Hyperkalemia; Z93.2 Ileostomy status; Z68.29 Body mass index [BMI] 29.0-29.9, adult
CPT/HCPCS: 36415; 71045; 71275; 74175; 78582; 80048; 80053; 82272; 84132; 84484; 85025; 85379; 85520; 87324; 93005; 93970; 96361; 96374; 96375; J1644; J2405; Q9967; A9540; A9558; C9898; J7030; J7050

== ENCOUNTER → 2018-08-01 | Outpatient (CLI) | payer MEDICARE, OTHER ==
[~2018-08-01] MED LIST changes: +ALLO100T30 PO; +AMLO-150 PO; +AMLO10TA8 PO; -AMLO5TAB2 PO; -ASPI-621 PO; +ASPI81TA45 PO; +COLC0.6T37 PO; +FOLI-17 PO; +METO25TA35 PO; +PARO20TA4 PO
== END | disposition home or self-care (01) ==
LOC: ROC 10:54
PROVIDERS: ATTEND Radiology Radiation Oncology
DX: C51.9 Malignant neoplasm of vulva, unspecified (principal)
CPT/HCPCS: 99205; G0463

== ENCOUNTER → 2018-08-02 | Outpatient (CLI) | payer MEDICARE, OTHER | END | disposition home or self-care (01) | LOC: PETCFH 07:25 | PROVIDERS: ATTEND Specialist | DX: C51.9 Malignant neoplasm of vulva, unspecified (principal); N28.1 Cyst of kidney, acquired; K57.30 Diverticulosis of large intestine without perforation or abscess without bleeding; K44.9 Diaphragmatic hernia without obstruction or gangrene | CPT/HCPCS: 78815; A9552 ==

== ENCOUNTER → 2018-08-08 | Outpatient (CLI) | payer MEDICARE, OTHER ==
[2018-08-08 08:31] LABS: BASOPHILS # (AUTO) 0.04 x10^3/uL (0-0.1); BASOPHILS % (AUTO) 1 % (0-1); EOSINOPHILS # (AUTO) 0.18 x10^3/uL (0-0.4); EOSINOPHILS % (AUTO) 2 % (1-7); LYMPHOCYTES # (AUTO) 2.92 x10^3/uL (1-3.4); LYMPHOCYTES % (AUTO) 30 % (22-44); MD NO; MEAN CORPUSCULAR HEMOGLOBIN 29.6 pg (27.0-34.8); MEAN CORPUSCULAR HGB CONC 33.6 g/dL (32.4-35.8); MEAN CORPUSCULAR VOLUME 88.2 fL (80-100); MEAN PLATELET VOLUME 8.1 fL (7.4-10.4); MONOCYTES # (AUTO) 0.66 x10^3/uL (0.2-0.8); MONOCYTES % (AUTO) 7 % (2-9); NEUTROPHILS # (AUTO) 5.96 x10^3/uL (1.8-6.8); NEUTROPHILS % (AUTO) 61 % (42-75); PLATELET COUNT 242 x10^3/uL (130-400); RED BLOOD COUNT 4.64 x10^6/uL (3.82-5.3); RED CELL DISTRIBUTION WIDTH 16.8 % (9.6-15.2)
== END | disposition home or self-care (01) ==
LOC: LAB 08:19
PROVIDERS: ATTEND Specialist
DX: C51.1 Malignant neoplasm of labium minus (principal)
CPT/HCPCS: 36415; 85025

== ENCOUNTER 2018-08-29 07:32 | Inpatient (IN) | payer MEDICARE, OTHER ==
[~2018-08-29] VITALS: Ht 157.5 cm; Wt 74.0 kg
--- NOTE | 2018-08-29 07:32 | NUR ---
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
--- NOTE | 2018-08-29 08:10 | NUR ---
pt upright on gurney awake & calm, responds approp to staff, NAD, comfort measures provided, at BS, call light within reach, pt to imaging.
[2018-08-29] MEDS ORDERED: HYDROmorphone 1 MG/ML, 1ML IVPush PRN (08:30)
[2018-08-29] MEDS ORDERED: SODIUM CHLORIDE FLUSH 10ML SYR IVF ONE (08:30)
[2018-08-29] MEDS ORDERED: SODIUM CHLORIDE 0.9% 1,000ML IVBOLUS ONE (08:30)
[2018-08-29] MEDS ORDERED: HYDROmorphone 1 MG/ML, 1ML ONE (08:37)
--- NOTE | 2018-08-29 09:07 | NUR ---
pt returned from imaging, remains upright on gurney awake & calm, responds approp to staff, NAD, comfort measures provided, at BS, call light within reach
[2018-08-29 09:56] LABS: ALANINE AMINOTRANSFERASE 21 U/L (12-78); ALBUMIN 3.1 g/dL (3.4-5.0); ANION GAP 9 mmol/L (5-15); CALCIUM 8.4 mg/dL (8.5-10.1); CHLORIDE 100 mmol/L (98-107)
[2018-08-29 10:01] LABS: ALKALINE PHOSPHATASE 91 U/L (45-117); BILIRUBIN,TOTAL 0.5 mg/dL (0.2-1.0); CREATININE 1.14 mg/dL (0.55-1.02); TOTAL PROTEIN 6.6 g/dL (6.4-8.2); TROPONIN I < 0.015 ng/mL (0.000-0.045)
--- NOTE | 2018-08-29 10:03 | NUR ---
pt upright on gurney awake & calm, responds approp to staff, NAD, comfort measures provided, at BS, call light within reach.
[2018-08-29 10:12] LABS: MEAN CORPUSCULAR HEMOGLOBIN 28.7 pg (27.0-34.8); MEAN CORPUSCULAR HGB CONC 33.1 g/dL (32.4-35.8); MEAN CORPUSCULAR VOLUME 86.6 fL (80-100); MEAN PLATELET VOLUME 8.7 fL (7.4-10.4); PLATELET COUNT 180 x10^3/uL (130-400); RED BLOOD COUNT 4.26 x10^6/uL (3.82-5.3); RED CELL DISTRIBUTION WIDTH 16.5 % (9.6-15.2)
[2018-08-29 10:27] LABS: BASOPHILS % (AUTO) 0 % (0-1); EOSINOPHILS % (AUTO) 2 % (1-7); LYMPHOCYTES # (AUTO) 0.45 x10^3/uL (1-3.4); LYMPHOCYTES % (AUTO) 7 % (22-44); MD SCAN; MONOCYTES % (AUTO) 8 % (2-9); NEUTROPHILS # (AUTO) 5.36 x10^3/uL (1.8-6.8); NEUTROPHILS % (AUTO) 84 % (42-75)
--- NOTE | 2018-08-29 11:04 | NUR ---
pt remains upright on gurney awake & calm, responds approp to staff, NAD, comfort measures provided, at BS, call light within reach
--- NOTE | 2018-08-29 12:02 | NUR ---
pt upright on gurney with eyes closed, able to doze off, responds approp to staff, NAD, comfort measures provided, call light within reach.
[2018-08-29] MEDS: NS + 20MEQ KCL 1,000 ML IV SCH (12:52)
--- NOTE | 2018-08-29 12:58 | NUR ---
pt remains upright on gurney awake & calm, responds approp to staff, NAD, comfort measures provided, call light within reach
[2018-08-29] MEDS ORDERED: ENALAPRILAT 1.25 MG/ML, 2ML IVPush PRN (13:00)
[2018-08-29] MEDS ORDERED: ONDANSETRON 2MG/ML, 2ML IVPush PRN (13:00)
[2018-08-29] MEDS ORDERED: ACETAMINOPHEN 325 MG TABLET PO PRN (13:00)
[2018-08-29] MEDS ORDERED: LABETALOL 5MG/ML, 20ML IVPush PRN (13:00)
[2018-08-29] MEDS ORDERED: hydrALAzine 20 MG/ML, 1ML IVPush PRN (13:00)
[2018-08-29] MEDS ORDERED: HEPARIN 5,000 UNITS/ML, 1ML ONE (13:16)
[2018-08-29] MEDS: HEPARIN 5,000 UNITS/ML, 1ML SQ SCH ×2 (13:20→21:17)
--- NOTE | 2018-08-29 13:23 | NUR ---
Heparin admin. No other needs.
[2018-08-29 13:30] LABS: THYROID STIMULATING HORMONE 0.967 mIU/L (0.358-3.740)
--- NOTE | 2018-08-29 14:04 | NUR ---
pt upright on gurney with eyes closed, able to doze off, responds approp to staff, NAD, comfort measures provided, call light within reach.
--- NOTE | 2018-08-29 14:25 | NUR ---
meal tray given
--- NOTE | 2018-08-29 14:27 | NUR ---
hospital bed requested
[2018-08-29 14:53] LABS: MICROSCOPIC AUTO
--- NOTE | 2018-08-29 15:01 | NUR ---
pt remains upright on gurney awake & calm, responds approp to staff, NAD, comfort measures provided, call light within reach.
[2018-08-29 15:02] LABS: CULTURE INDICATED? YES
[2018-08-29] MEDS ORDERED: NS + 20MEQ KCL 1,000 ML IV ONE (15:03)
--- NOTE | 2018-08-29 15:21 | NUR ---
Pt to be admitted to [facility], room 490-1. Report called to Kim.
[2018-08-29] MEDS ORDERED: MAGNESIUM SULFATE PMX 2GM/50ML 50 ML IV ONE (16:00)
[2018-08-29 16:01] VITALS: BP 99/65
[2018-08-29] MEDS: ACETAMINOPHEN 325 MG TABLET PO PRN (17:29)
[2018-08-29 18:41] VITALS: BP 99/65
[2018-08-29 18:49] VITALS: BP 113/74
[2018-08-29] MEDS: METOPROLOL TARTRATE 25 MG TABLET PO SCH (21:17)
[2018-08-30] VITALS (7 sets, daily range): BP systolic 94–123; BP diastolic 64–82
[2018-08-30] MEDS ORDERED: LOPERAMIDE 2 MG CAPSULE ONE (01:18)
[2018-08-30] MEDS: LOPERAMIDE 2 MG CAPSULE PO PRN ×2 (01:20→15:01)
[2018-08-30] MEDS: HEPARIN 5,000 UNITS/ML, 1ML SQ SCH ×3 (05:23→21:38)
[2018-08-30] MEDS: ACETAMINOPHEN 325 MG TABLET PO PRN ×2 (05:31→17:43)
[2018-08-30 05:54] LABS: ANION GAP 8 mmol/L (5-15); CALCIUM 7.9 mg/dL (8.5-10.1); CHLORIDE 101 mmol/L (98-107)
[2018-08-30 05:55] LABS: CREATININE 0.88 mg/dL (0.55-1.02)
[2018-08-30 06:01] LABS: BASOPHILS # (AUTO) 0.01 x10^3/uL (0-0.1); BASOPHILS % (AUTO) 0 % (0-1); EOSINOPHILS # (AUTO) 0.14 x10^3/uL (0-0.4); EOSINOPHILS % (AUTO) 4 % (1-7); LYMPHOCYTES # (AUTO) 0.53 x10^3/uL (1-3.4); LYMPHOCYTES % (AUTO) 13 % (22-44); MD NO; MEAN CORPUSCULAR HEMOGLOBIN 29.6 pg (27.0-34.8); MEAN CORPUSCULAR HGB CONC 34.2 g/dL (32.4-35.8); MEAN CORPUSCULAR VOLUME 86.4 fL (80-100); MEAN PLATELET VOLUME 8.5 fL (7.4-10.4); MONOCYTES # (AUTO) 0.27 x10^3/uL (0.2-0.8); MONOCYTES % (AUTO) 7 % (2-9); NEUTROPHILS % (AUTO) 76 % (42-75); PLATELET COUNT 164 x10^3/uL (130-400); RED CELL DISTRIBUTION WIDTH 16.4 % (9.6-15.2)
[2018-08-30] MEDS ORDERED: POTASSIUM CHLORIDE 20 MEQ TAB.ER.PRT PO ONE ×2 (08:00→10:00)
[2018-08-30] MEDS: METOPROLOL TARTRATE 25 MG TABLET PO SCH ×2 (08:10→21:34)
[2018-08-30] MEDS: LOPERAMIDE 2 MG CAPSULE PO SCH (08:10)
[2018-08-30] MEDS: MULTIVITAMINS/MINERALS TABLET PO SCH (08:10)
[2018-08-30] MEDS: COLCHICINE 0.6 MG TABLET PO SCH (08:10)
[2018-08-30] MEDS: PAROXETINE 20 MG TABLET PO SCH (08:11)
[2018-08-30] MEDS: LACTOBACILLUS CHEW TABLET PO SCH (08:11)
[2018-08-30] MEDS: ASPIRIN 81 MG TABLET EC PO SCH (08:11)
[2018-08-30] MEDS ORDERED: AMLODIPINE 10 MG TAB PO SCH (09:00)
[2018-08-30] MEDS: NS + 20MEQ KCL 1,000 ML IV SCH (09:52)
[2018-08-30] MEDS ORDERED: MAGNESIUM SULFATE 3 GM in SODIUM CHLORIDE 0.9% 100 ML IV ONE (16:00)
[2018-08-30 16:42] LABS: ANION GAP 7 mmol/L (5-15); CALCIUM 7.8 mg/dL (8.5-10.1); CHLORIDE 104 mmol/L (98-107); CREATININE 1.35 mg/dL (0.55-1.02)
[2018-08-30 16:46] LABS: TROPONIN I < 0.015 ng/mL (0.000-0.045)
[2018-08-31 00:17] VITALS: BP 127/81
[2018-08-31] MEDS: HEPARIN 5,000 UNITS/ML, 1ML SQ SCH (05:24)
[2018-08-31 07:02] VITALS: BP 135/82
[2018-08-31 07:14] LABS: ANION GAP 8 mmol/L (5-15); CALCIUM 8.2 mg/dL (8.5-10.1); CHLORIDE 105 mmol/L (98-107); CREATININE 0.81 mg/dL (0.55-1.02)
[2018-08-31] MEDS ORDERED: POTASSIUM CHLORIDE 10% 40 MEQ/30 ML UDC PO ONE ×2 (07:30→11:30)
[2018-08-31] MEDS ORDERED: MAGNESIUM SULFATE 3 GM in SODIUM CHLORIDE 0.9% 100 ML IV ONE (07:30)
[2018-08-31 08:05] LABS: BASOPHILS # (AUTO) 0.01 x10^3/uL (0-0.1); BASOPHILS % (AUTO) 0 % (0-1); EOSINOPHILS # (AUTO) 0.13 x10^3/uL (0-0.4); EOSINOPHILS % (AUTO) 3 % (1-7); LYMPHOCYTES # (AUTO) 0.54 x10^3/uL (1-3.4); LYMPHOCYTES % (AUTO) 13 % (22-44); MD NO; MEAN CORPUSCULAR HEMOGLOBIN 28.6 pg (27.0-34.8); MEAN CORPUSCULAR HGB CONC 32.9 g/dL (32.4-35.8); MEAN PLATELET VOLUME 8.4 fL (7.4-10.4); MONOCYTES # (AUTO) 0.32 x10^3/uL (0.2-0.8); MONOCYTES % (AUTO) 8 % (2-9); NEUTROPHILS # (AUTO) 3.16 x10^3/uL (1.8-6.8); NEUTROPHILS % (AUTO) 76 % (42-75); PLATELET COUNT 149 x10^3/uL (130-400); RED BLOOD COUNT 4.27 x10^6/uL (3.82-5.3); RED CELL DISTRIBUTION WIDTH 16.7 % (9.6-15.2)
[2018-08-31] MEDS ORDERED: AMLO10TA8 PO (08:17)
[2018-08-31] MEDS ORDERED: AMLODIPINE 5 MG TABLET PO SCH (09:00)
[2018-08-31] MEDS: LOPERAMIDE 2 MG CAPSULE PO SCH (09:13)
[2018-08-31] MEDS: LACTOBACILLUS CHEW TABLET PO SCH (09:13)
[2018-08-31] MEDS: METOPROLOL TARTRATE 25 MG TABLET PO SCH (09:13)
[2018-08-31] MEDS: PAROXETINE 20 MG TABLET PO SCH (09:13)
[2018-08-31] MEDS: MULTIVITAMINS/MINERALS TABLET PO SCH (09:13)
[2018-08-31] MEDS: COLCHICINE 0.6 MG TABLET PO SCH (09:13)
[2018-08-31] MEDS: ASPIRIN 81 MG TABLET EC PO SCH (09:14)
[2018-08-31] MEDS ORDERED: NS + 20MEQ KCL 1,000 ML IV SCH (12:52)
== END 2018-08-31 12:15 | disposition home health service (06) | DRG 683 ==
LOC: ED 08:16 → EDIP 10:14 → 4EST 15:48 → 4WST 16:35 → DCLOUNGE 08-31 11:57
PROVIDERS: ADMIT Internal Medicine; ATTEND Internal Medicine
DX: N17.0 Acute kidney failure with tubular necrosis (principal); I42.9 Cardiomyopathy, unspecified; E87.6 Hypokalemia; I95.1 Orthostatic hypotension; C51.9 Malignant neoplasm of vulva, unspecified; E83.42 Hypomagnesemia; E86.0 Dehydration; I10 Essential (primary) hypertension; I73.9 Peripheral vascular disease, unspecified; Z82.49 Family history of ischemic heart disease and other diseases of the circulatory system; Z85.44 Personal history of malignant neoplasm of other female genital organs; Z87.891 Personal history of nicotine dependence; Z90.49 Acquired absence of other specified parts of digestive tract; Z90.710 Acquired absence of both cervix and uterus; Z92.3 Personal history of irradiation; Z90.89 Acquired absence of other organs; Z92.21 Personal history of antineoplastic chemotherapy
CPT/HCPCS: 0399T; 36415; 70450; 71045; 77386; 80048; 80053; 81001; 82040; 83605; 83735; 84100; 84443; 84484; 85025; 87086; 93005; 93306; 96361; 96374; G0378; J1170; J1644; J3475; J3480; J7030

== ENCOUNTER 2018-10-01 04:08 | Inpatient (IN) | payer MEDICARE, OTHER ==
[~2018-10-01] VITALS: Ht 157.5 cm; Wt 71.3 kg
[~2018-10-01 04:08] MED LIST changes: +ROSU20TA2 PO
[2018-10-01] MEDS ORDERED: PROC10TA2 PO (04:35)
[2018-10-01] MEDS ORDERED: OXYC10TA47 PO (04:35)
[2018-10-01] MEDS ORDERED: HYDR-3237 PO (04:35)
[2018-10-01] MEDS ORDERED: AMLO10TA8 PO (04:35)
[2018-10-01] MEDS ORDERED: ONDA4TAB13 SL (04:35)
[2018-10-01] MEDS ORDERED: DIPH1TAB PO (04:35)
[2018-10-01] MEDS ORDERED: OXYC-302 PO (04:35)
[2018-10-01] MEDS ORDERED: SULF1TAB24 PO (04:35)
[2018-10-01] MEDS ORDERED: ONDANSETRON 2MG/ML, 2ML ONE (04:59)
[2018-10-01] MEDS ORDERED: HYDROmorphone 1 MG/ML, 1ML VIAL ONE (04:59)
[2018-10-01] MEDS ORDERED: ONDANSETRON 2MG/ML, 2ML IVPush ONE (05:00)
[2018-10-01] MEDS ORDERED: HYDROmorphone 1 MG/ML, 1ML VIAL IVPush PRN (05:00)
[2018-10-01] MEDS ORDERED: SODIUM CHLORIDE FLUSH 10ML SYR IVF ONE (05:00)
--- NOTE | 2018-10-01 05:12 | NUR ---
CT PENDING LAB/CREATINE.
--- NOTE | 2018-10-01 05:31 | NUR ---
pt in bed in hospital gown. pt on vitals monitors. pt medicated for pain per emar. pt having 3 small quarter sized BMs. UNABLE TO COLLECT TO SEND FOR SAMPLE. PT AWARE STOOL AND URINE SAMPLE ARE NEEDED. PT AT BEDSIDE. PT AWARE OF CARE PLAN AT THIS TIME.
[2018-10-01 05:39] LABS: BASOPHILS # (AUTO) 0.01 x10^3/uL (0-0.1); BASOPHILS % (AUTO) 0 % (0-1); EOSINOPHILS # (AUTO) 0.07 x10^3/uL (0-0.4); EOSINOPHILS % (AUTO) 2 % (1-7); LYMPHOCYTES # (AUTO) 0.53 x10^3/uL (1-3.4); LYMPHOCYTES % (AUTO) 18 % (22-44); MD NO; MEAN CORPUSCULAR HEMOGLOBIN 30.3 pg (27.0-34.8); MEAN CORPUSCULAR HGB CONC 34.2 g/dL (32.4-35.8); MEAN CORPUSCULAR VOLUME 88.6 fL (80-100); MEAN PLATELET VOLUME 7.4 fL (7.4-10.4); MONOCYTES % (AUTO) 10 % (2-9); NEUTROPHILS # (AUTO) 2.11 x10^3/uL (1.8-6.8); NEUTROPHILS % (AUTO) 70 % (42-75); PLATELET COUNT 200 x10^3/uL (130-400); RED CELL DISTRIBUTION WIDTH 19.7 % (9.6-15.2)
--- NOTE | 2018-10-01 05:43 | NUR ---
PT PLACED ON TELE MONITOR.
[2018-10-01 05:53] LABS: ALANINE AMINOTRANSFERASE 19 U/L (12-78); ALBUMIN 3.1 g/dL (3.4-5.0); ANION GAP 9 mmol/L (5-15); CALCIUM 8.9 mg/dL (8.5-10.1); CHLORIDE 110 mmol/L (98-107); CREATININE 1.53 mg/dL (0.55-1.02)
[2018-10-01 05:55] LABS: ALKALINE PHOSPHATASE 110 U/L (45-117); BILIRUBIN,TOTAL 0.3 mg/dL (0.2-1.0); TOTAL PROTEIN 6.4 g/dL (6.4-8.2)
[2018-10-01] MEDS ORDERED: SODIUM CHLORIDE 0.9% 1,000ML IVBOLUS ONE (06:00)
--- NOTE | 2018-10-01 06:26 | NUR ---
WAITING FOR PT TO BE CLEAN UP.
--- NOTE | 2018-10-01 06:37 | NUR ---
PT CLEANED UP. GOING TO CT AT THIS TIME.
[2018-10-01] MEDS ORDERED: OMNIPAQUE 350 MG/ML, 100ML BOTTLE ONE (06:47)
--- NOTE | 2018-10-01 07:09 | NUR ---
Report from Neela SCOTT. Pt resting in bed. NAD. BLANCO.
[2018-10-01] MEDS ORDERED: SILVER SULF. CRM 1%, 400GM TP ONE (08:30)
[2018-10-01 08:55] VITALS: BP 104/65
[2018-10-01] MEDS ORDERED: ONDANSETRON 2MG/ML, 2ML IV PRN (09:30)
[2018-10-01] MEDS ORDERED: HEMORRHOIDAL OINT, 57 GM (PREP H) RC PRN (09:30)
[2018-10-01] MEDS ORDERED: ONDANSETRON ODT 4 MG PO PRN (09:30)
[2018-10-01] MEDS ORDERED: MORPHINE SULFATE 4 MG/ML, 1ML ONE (09:34)
[2018-10-01] MEDS: MORPHINE SULFATE 4 MG/ML, 1ML IVPush PRN ×3 (09:39→18:08)
[2018-10-01] MEDS ORDERED: DOMEBORO MC SCH (10:00)
[2018-10-01 10:38] LABS: MICROSCOPIC NOT IND
[2018-10-01] MEDS: SULFAMETH./TRIMETHOPRIM DS 800MG/160MG TABLET PO SCH ×2 (10:56→20:14)
[2018-10-01] MEDS: DIPHENOXYLATE/ATROPINE TABLET PO SCH ×3 (10:56→20:14)
[2018-10-01 10:58] LABS: CULTURE INDICATED? NO
[2018-10-01] MEDS: D5%-0.45NACL+KCL 20MEQ 1,000 ML IV SCH ×2 (11:03→20:14)
[2018-10-01] MEDS: HYDROcodone/APAP 5/325 TABLET PO PRN ×2 (11:03→17:07)
[2018-10-01 11:47] LABS: CLOSTRIDIUM DIFFICILE ANTIGEN NEGATIVE; CLOSTRIDIUM DIFFICILE TOXIN NEGATIVE (Negative)
[2018-10-01] MEDS ORDERED: MAGNESIUM SULFATE 4 GM in SODIUM CHLORIDE 0.9% 100 ML IV ONE (12:00)
[2018-10-01] MEDS ORDERED: MAGNESIUM SULFATE PMX 4GM/100M 100 ML IV ONE (12:05)
[2018-10-01] MEDS: SILVER SULF. CRM 1% , 25GM TP PRN (12:19)
[2018-10-01 12:38] VITALS: BP 107/68
[2018-10-01] MEDS ORDERED: CALCIUM ACETATE/ALUMINUM SULF PACKET TP PRN (13:30)
[2018-10-01] MEDS ORDERED: CALCIUM ACETATE/ALUMINUM SULF PACKET TP SCH (16:00)
[2018-10-01] MEDS: METOPROLOL TARTRATE 25 MG TABLET PO SCH (17:07)
[2018-10-01] MEDS ORDERED: CATHFLO-ALTEPLASE 2 MG/2 ML CATHFLUSH ONE (18:30)
[2018-10-01 19:10] VITALS: BP 106/66
[2018-10-01] MEDS: ROSUVASTATIN 20 MG PO SCH (21:00)
[2018-10-02] VITALS (14 sets, daily range): BP systolic 93–117; BP diastolic 51–63
[2018-10-02] MEDS ORDERED: CATHFLO-ALTEPLASE 2 MG/2 ML CATHFLUSH ONE
[2018-10-02] MEDS: MORPHINE SULFATE 4 MG/ML, 1ML IVPush PRN ×5 (01:30→23:22)
[2018-10-02] MEDS: D5%-0.45NACL+KCL 20MEQ 1,000 ML IV SCH ×2 (04:20→20:17)
[2018-10-02] MEDS: METOPROLOL TARTRATE 25 MG TABLET PO SCH ×2 (04:21→18:00)
[2018-10-02] MEDS: ASPIRIN 81 MG TABLET EC PO SCH (04:21)
[2018-10-02 06:23] LABS: MEAN CORPUSCULAR HEMOGLOBIN 30.2 pg (27.0-34.8); MEAN CORPUSCULAR HGB CONC 33.3 g/dL (32.4-35.8); MEAN CORPUSCULAR VOLUME 90.7 fL (80-100); MEAN PLATELET VOLUME 7.5 fL (7.4-10.4); PLATELET COUNT 173 x10^3/uL (130-400); RED BLOOD COUNT 2.57 x10^6/uL (3.82-5.3); RED CELL DISTRIBUTION WIDTH 20.5 % (9.6-15.2)
[2018-10-02 06:30] LABS: ALBUMIN 2.7 g/dL (3.4-5.0); ANION GAP 6 mmol/L (5-15); CALCIUM 8.3 mg/dL (8.5-10.1); CHLORIDE 112 mmol/L (98-107)
[2018-10-02 06:34] LABS: ALANINE AMINOTRANSFERASE 16 U/L (12-78); ALKALINE PHOSPHATASE 92 U/L (45-117); BILIRUBIN,TOTAL 0.2 mg/dL (0.2-1.0); CREATININE 1.19 mg/dL (0.55-1.02); TOTAL PROTEIN 5.7 g/dL (6.4-8.2)
[2018-10-02 06:54] LABS: BASOPHILS # (AUTO) 0.02 x10^3/uL (0-0.1); BASOPHILS % (AUTO) 1 % (0-1); EOSINOPHILS # (AUTO) 0.11 x10^3/uL (0-0.4); EOSINOPHILS % (AUTO) 5 % (1-7); LYMPHOCYTES # (AUTO) 0.43 x10^3/uL (1-3.4); LYMPHOCYTES % (AUTO) 20 % (22-44); MD SCAN; MONOCYTES # (AUTO) 0.23 x10^3/uL (0.2-0.8); MONOCYTES % (AUTO) 11 % (2-9); NEUTROPHILS # (AUTO) 1.38 x10^3/uL (1.8-6.8); NEUTROPHILS % (AUTO) 64 % (42-75)
[2018-10-02] MEDS: DIPHENOXYLATE/ATROPINE TABLET PO SCH ×3 (08:00→20:17)
[2018-10-02] MEDS: SULFAMETH./TRIMETHOPRIM DS 800MG/160MG TABLET PO SCH ×2 (08:00→20:17)
[2018-10-02] MEDS: ALLOPURINOL 100 MG TABLET PO SCH (08:00)
[2018-10-02] MEDS: AMLODIPINE 10 MG TAB PO SCH (08:00)
[2018-10-02] MEDS ORDERED: PAROXETINE 40 MG PO SCH (09:00)
[2018-10-02] MEDS ORDERED: ACETAMINOPHEN 325 MG TABLET PO ONE (10:00)
[2018-10-02] MEDS ORDERED: DIPHENHYDRAMINE 25 MG CAPSULE PO ONE (10:00)
[2018-10-02] MEDS: PAROXETINE 40 MG PO SCH (10:38)
[2018-10-02] MEDS: ROSUVASTATIN 20 MG PO SCH (20:13)
[2018-10-03 00:50] VITALS: BP 129/78
[2018-10-03 03:49] LABS: MEAN CORPUSCULAR HEMOGLOBIN 30.4 pg (27.0-34.8); MEAN CORPUSCULAR HGB CONC 34.4 g/dL (32.4-35.8); MEAN CORPUSCULAR VOLUME 88.5 fL (80-100); MEAN PLATELET VOLUME 7.4 fL (7.4-10.4); PLATELET COUNT 167 x10^3/uL (130-400); RED BLOOD COUNT 3.52 x10^6/uL (3.82-5.3); RED CELL DISTRIBUTION WIDTH 17.8 % (9.6-15.2)
[2018-10-03 03:58] LABS: ALBUMIN 3.1 g/dL (3.4-5.0); ANION GAP 8 mmol/L (5-15); CALCIUM 8.5 mg/dL (8.5-10.1); CHLORIDE 110 mmol/L (98-107)
[2018-10-03 04:01] LABS: ALANINE AMINOTRANSFERASE 19 U/L (12-78); ALKALINE PHOSPHATASE 103 U/L (45-117); BILIRUBIN,TOTAL 0.7 mg/dL (0.2-1.0); CREATININE 1.14 mg/dL (0.55-1.02); TOTAL PROTEIN 6.3 g/dL (6.4-8.2)
[2018-10-03] MEDS: ASPIRIN 81 MG TABLET EC PO SCH (05:31)
[2018-10-03] MEDS: METOPROLOL TARTRATE 25 MG TABLET PO SCH ×2 (05:34→17:09)
[2018-10-03 05:45] LABS: BASOPHILS # (AUTO) 0.01 x10^3/uL (0-0.1); BASOPHILS % (AUTO) 1 % (0-1); EOSINOPHILS # (AUTO) 0.15 x10^3/uL (0-0.4); EOSINOPHILS % (AUTO) 5 % (1-7); LYMPHOCYTES # (AUTO) 0.69 x10^3/uL (1-3.4); LYMPHOCYTES % (AUTO) 22 % (22-44); MD SCAN; MONOCYTES # (AUTO) 0.33 x10^3/uL (0.2-0.8); MONOCYTES % (AUTO) 11 % (2-9); NEUTROPHILS # (AUTO) 1.91 x10^3/uL (1.8-6.8); NEUTROPHILS % (AUTO) 62 % (42-75)
[2018-10-03] MEDS: ALLOPURINOL 100 MG TABLET PO SCH (07:51)
[2018-10-03] MEDS: DIPHENOXYLATE/ATROPINE TABLET PO SCH ×3 (07:51→20:14)
[2018-10-03] MEDS: AMLODIPINE 10 MG TAB PO SCH (07:51)
[2018-10-03] MEDS: SULFAMETH./TRIMETHOPRIM DS 800MG/160MG TABLET PO SCH ×2 (07:51→20:14)
[2018-10-03 07:53] VITALS: BP 172/93
[2018-10-03] MEDS: MORPHINE SULFATE 4 MG/ML, 1ML IVPush PRN ×2 (08:05→21:32)
[2018-10-03] MEDS: LOPERAMIDE 2 MG CAPSULE PO SCH ×3 (09:36→20:14)
[2018-10-03 13:35] VITALS: BP 103/66
[2018-10-03 14:19] VITALS: BP 113/69
[2018-10-03 17:08] VITALS: BP 114/72
[2018-10-03 20:10] VITALS: BP 115/72
[2018-10-03] MEDS: ROSUVASTATIN 20 MG PO SCH (20:19)
[2018-10-03] MEDS: HYDROcodone/APAP 5/325 TABLET PO PRN (23:31)
[2018-10-04] MEDS: MORPHINE SULFATE 4 MG/ML, 1ML IVPush PRN ×4 (00:44→21:50)
[2018-10-04 00:49] VITALS: BP 114/73
[2018-10-04] MEDS: SILVER SULF. CRM 1% , 25GM TP PRN (00:53)
[2018-10-04] MEDS: LOPERAMIDE 2 MG CAPSULE PO SCH ×5 (04:02→20:35)
[2018-10-04 04:37] LABS: MEAN CORPUSCULAR HEMOGLOBIN 30.2 pg (27.0-34.8); MEAN CORPUSCULAR HGB CONC 34.1 g/dL (32.4-35.8); MEAN CORPUSCULAR VOLUME 88.6 fL (80-100); MEAN PLATELET VOLUME 7.5 fL (7.4-10.4); PLATELET COUNT 169 x10^3/uL (130-400); RED BLOOD COUNT 3.76 x10^6/uL (3.82-5.3); RED CELL DISTRIBUTION WIDTH 18.8 % (9.6-15.2)
[2018-10-04 04:54] LABS: BASOPHILS # (AUTO) 0.02 x10^3/uL (0-0.1); BASOPHILS % (AUTO) 1 % (0-1); EOSINOPHILS # (AUTO) 0.16 x10^3/uL (0-0.4); EOSINOPHILS % (AUTO) 6 % (1-7); LYMPHOCYTES % (AUTO) 22 % (22-44); MD SCAN; MONOCYTES % (AUTO) 11 % (2-9); NEUTROPHILS # (AUTO) 1.59 x10^3/uL (1.8-6.8); NEUTROPHILS % (AUTO) 59 % (42-75)
[2018-10-04 05:14] LABS: ALANINE AMINOTRANSFERASE 17 U/L (12-78); ALBUMIN 3.1 g/dL (3.4-5.0); ANION GAP 7 mmol/L (5-15); CALCIUM 8.9 mg/dL (8.5-10.1); CHLORIDE 109 mmol/L (98-107); CREATININE 1.05 mg/dL (0.55-1.02)
[2018-10-04 05:16] LABS: ALKALINE PHOSPHATASE 107 U/L (45-117); BILIRUBIN,TOTAL 0.2 mg/dL (0.2-1.0); TOTAL PROTEIN 6.4 g/dL (6.4-8.2)
[2018-10-04] MEDS: METOPROLOL TARTRATE 25 MG TABLET PO SCH ×2 (05:38→17:08)
[2018-10-04] MEDS: AMLODIPINE 10 MG TAB PO SCH (08:14)
[2018-10-04] MEDS: DIPHENOXYLATE/ATROPINE TABLET PO SCH ×3 (08:14→20:35)
[2018-10-04] MEDS: ALLOPURINOL 100 MG TABLET PO SCH (08:14)
[2018-10-04] MEDS: ASPIRIN 81 MG TABLET EC PO SCH (08:15)
[2018-10-04] MEDS: SULFAMETH./TRIMETHOPRIM DS 800MG/160MG TABLET PO SCH ×2 (08:15→20:35)
[2018-10-04] MEDS: PAROXETINE 40 MG PO SCH (08:19)
[2018-10-04 08:44] VITALS: BP 102/65
[2018-10-04] MEDS ORDERED: MAGNESIUM SULFATE PMX 4GM/100M 100 ML IVPB ONE (09:30)
[2018-10-04 13:10] VITALS: BP 102/64
[2018-10-04 17:02] VITALS: BP 131/78
[2018-10-04 19:54] VITALS: BP 92/61
[2018-10-04] MEDS: HYDROcodone/APAP 5/325 TABLET PO PRN (20:35)
[2018-10-04] MEDS: ROSUVASTATIN 20 MG PO SCH (21:00)
[2018-10-05 00:52] VITALS: BP 132/81
[2018-10-05] MEDS: MORPHINE SULFATE 4 MG/ML, 1ML IVPush PRN ×4 (00:55→20:02)
[2018-10-05] MEDS: LOPERAMIDE 2 MG CAPSULE PO SCH ×4 (03:55→21:32)
[2018-10-05] MEDS: METOPROLOL TARTRATE 25 MG TABLET PO SCH ×3 (04:43→16:53)
[2018-10-05] MEDS: ASPIRIN 81 MG TABLET EC PO SCH (04:44)
[2018-10-05 05:34] LABS: MEAN CORPUSCULAR HEMOGLOBIN 29.8 pg (27.0-34.8); MEAN CORPUSCULAR HGB CONC 33.5 g/dL (32.4-35.8); MEAN PLATELET VOLUME 7.6 fL (7.4-10.4); PLATELET COUNT 187 x10^3/uL (130-400); RED CELL DISTRIBUTION WIDTH 18.6 % (9.6-15.2)
[2018-10-05 05:49] LABS: ALBUMIN 3.1 g/dL (3.4-5.0); ANION GAP 6 mmol/L (5-15); CHLORIDE 109 mmol/L (98-107)
[2018-10-05 05:54] LABS: ALANINE AMINOTRANSFERASE 18 U/L (12-78); ALKALINE PHOSPHATASE 97 U/L (45-117); BILIRUBIN,TOTAL 0.3 mg/dL (0.2-1.0); CREATININE 1.42 mg/dL (0.55-1.02); TOTAL PROTEIN 6.4 g/dL (6.4-8.2)
[2018-10-05 06:44] LABS: BASOPHILS # (AUTO) 0.02 x10^3/uL (0-0.1); BASOPHILS % (AUTO) 1 % (0-1); EOSINOPHILS # (AUTO) 0.16 x10^3/uL (0-0.4); EOSINOPHILS % (AUTO) 7 % (1-7); LYMPHOCYTES % (AUTO) 28 % (22-44); MD SCAN; MONOCYTES # (AUTO) 0.33 x10^3/uL (0.2-0.8); MONOCYTES % (AUTO) 13 % (2-9); NEUTROPHILS # (AUTO) 1.28 x10^3/uL (1.8-6.8); NEUTROPHILS % (AUTO) 51 % (42-75)
[2018-10-05 07:00] VITALS: BP 92/58
[2018-10-05] MEDS: PAROXETINE 40 MG PO SCH (09:00)
[2018-10-05] MEDS: SULFAMETH./TRIMETHOPRIM DS 800MG/160MG TABLET PO SCH ×2 (09:40→19:56)
[2018-10-05] MEDS: HYDROcodone/APAP 5/325 TABLET PO PRN (09:40)
[2018-10-05] MEDS: AMLODIPINE 10 MG TAB PO SCH (09:40)
[2018-10-05] MEDS: DIPHENOXYLATE/ATROPINE TABLET PO SCH ×3 (09:40→19:55)
[2018-10-05] MEDS: ALLOPURINOL 100 MG TABLET PO SCH (09:40)
[2018-10-05 12:10] VITALS: BP 100/62
[2018-10-05] MEDS: D5%-0.45NACL+KCL 20MEQ 1,000 ML IV SCH (14:44)
[2018-10-05] MEDS: PSYLLIUM PACKET PO SCH ×2 (14:45→19:56)
[2018-10-05] MEDS ORDERED: LOPERAMIDE 2 MG CAPSULE PO SCH (15:00)
[2018-10-05 18:37] VITALS: BP 95/60
[2018-10-05] MEDS: ROSUVASTATIN 20 MG PO SCH (19:54)
[2018-10-06 00:15] VITALS: BP 100/64
[2018-10-06] MEDS: MORPHINE SULFATE 4 MG/ML, 1ML IVPush PRN ×3 (01:46→20:30)
[2018-10-06] MEDS: LOPERAMIDE 2 MG CAPSULE PO SCH ×4 (03:37→23:21)
[2018-10-06] MEDS: METOPROLOL TARTRATE 25 MG TABLET PO SCH ×3 (05:35→17:28)
[2018-10-06] MEDS: ASPIRIN 81 MG TABLET EC PO SCH (05:36)
[2018-10-06 05:46] LABS: MEAN CORPUSCULAR HEMOGLOBIN 30.6 pg (27.0-34.8); MEAN CORPUSCULAR HGB CONC 35.2 g/dL (32.4-35.8); MEAN PLATELET VOLUME 7.4 fL (7.4-10.4); PLATELET COUNT 176 x10^3/uL (130-400); RED BLOOD COUNT 3.53 x10^6/uL (3.82-5.3); RED CELL DISTRIBUTION WIDTH 18.4 % (9.6-15.2)
[2018-10-06 05:57] LABS: ALANINE AMINOTRANSFERASE 19 U/L (12-78); ANION GAP 5 mmol/L (5-15); CALCIUM 8.8 mg/dL (8.5-10.1); CHLORIDE 107 mmol/L (98-107); CREATININE 1.35 mg/dL (0.55-1.02)
[2018-10-06 06:00] LABS: ALKALINE PHOSPHATASE 99 U/L (45-117); BILIRUBIN,TOTAL 0.3 mg/dL (0.2-1.0); TOTAL PROTEIN 6.3 g/dL (6.4-8.2)
[2018-10-06 06:20] LABS: BASOPHILS # (AUTO) 0.02 x10^3/uL (0-0.1); BASOPHILS % (AUTO) 1 % (0-1); EOSINOPHILS # (AUTO) 0.19 x10^3/uL (0-0.4); EOSINOPHILS % (AUTO) 6 % (1-7); LYMPHOCYTES % (AUTO) 27 % (22-44); MD SCAN; MONOCYTES # (AUTO) 0.38 x10^3/uL (0.2-0.8); MONOCYTES % (AUTO) 13 % (2-9); NEUTROPHILS # (AUTO) 1.55 x10^3/uL (1.8-6.8); NEUTROPHILS % (AUTO) 53 % (42-75)
[2018-10-06 07:10] VITALS: BP 95/56
[2018-10-06] MEDS: PAROXETINE 40 MG PO SCH (09:00)
[2018-10-06] MEDS: AMLODIPINE 10 MG TAB PO SCH (09:00)
[2018-10-06] MEDS: SULFAMETH./TRIMETHOPRIM DS 800MG/160MG TABLET PO SCH ×2 (09:35→20:21)
[2018-10-06] MEDS: ALLOPURINOL 100 MG TABLET PO SCH (09:35)
[2018-10-06] MEDS: DIPHENOXYLATE/ATROPINE TABLET PO SCH ×3 (09:36→20:21)
[2018-10-06] MEDS: PSYLLIUM PACKET PO SCH ×3 (09:36→20:21)
[2018-10-06] MEDS ORDERED: MAGNESIUM SULFATE PMX 2GM/50ML 50 ML IV ONE (10:00)
[2018-10-06 13:10] VITALS: BP 90/59
[2018-10-06] MEDS: OPIUM TINCTURE 1% 10 MG/ML ORAL.SOL PO SCH ×3 (13:38→20:21)
[2018-10-06] MEDS: D5%-0.45NACL+KCL 20MEQ 1,000 ML IV SCH ×2 (17:22→17:23)
[2018-10-06] MEDS: OXYcodone IR 5MG TABLET PO PRN (18:46)
[2018-10-06 19:01] VITALS: BP 96/61
[2018-10-06] MEDS: ROSUVASTATIN 20 MG PO SCH (20:24)
[2018-10-07 00:59] VITALS: BP 120/70
[2018-10-07] MEDS: ASPIRIN 81 MG TABLET EC PO SCH (05:28)
[2018-10-07] MEDS: LOPERAMIDE 2 MG CAPSULE PO SCH ×2 (05:28→09:30)
[2018-10-07] MEDS: OXYcodone IR 5MG TABLET PO PRN (05:28)
[2018-10-07] MEDS: D5%-0.45NACL+KCL 20MEQ 1,000 ML IV SCH (05:30)
[2018-10-07 05:51] LABS: MEAN CORPUSCULAR HEMOGLOBIN 30.4 pg (27.0-34.8); MEAN CORPUSCULAR HGB CONC 34.1 g/dL (32.4-35.8); MEAN CORPUSCULAR VOLUME 89.3 fL (80-100); MEAN PLATELET VOLUME 7.5 fL (7.4-10.4); PLATELET COUNT 163 x10^3/uL (130-400); RED CELL DISTRIBUTION WIDTH 18.4 % (9.6-15.2)
[2018-10-07 06:02] LABS: ANION GAP 5 mmol/L (5-15); CALCIUM 8.7 mg/dL (8.5-10.1); CHLORIDE 109 mmol/L (98-107)
[2018-10-07 06:08] LABS: BASOPHILS # (AUTO) 0.02 x10^3/uL (0-0.1); BASOPHILS % (AUTO) 1 % (0-1); EOSINOPHILS # (AUTO) 0.15 x10^3/uL (0-0.4); EOSINOPHILS % (AUTO) 6 % (1-7); LYMPHOCYTES # (AUTO) 0.75 x10^3/uL (1-3.4); LYMPHOCYTES % (AUTO) 31 % (22-44); MD SCAN; MONOCYTES # (AUTO) 0.36 x10^3/uL (0.2-0.8); MONOCYTES % (AUTO) 15 % (2-9); NEUTROPHILS # (AUTO) 1.14 x10^3/uL (1.8-6.8); NEUTROPHILS % (AUTO) 47 % (42-75)
[2018-10-07 06:52] LABS: ALANINE AMINOTRANSFERASE 21 U/L (12-78)
[2018-10-07 06:56] LABS: ALKALINE PHOSPHATASE 96 U/L (45-117); BILIRUBIN,TOTAL 0.2 mg/dL (0.2-1.0)
[2018-10-07] MEDS: PAROXETINE 40 MG PO SCH (09:00)
[2018-10-07] MEDS: AMLODIPINE 10 MG TAB PO SCH (09:26)
[2018-10-07] MEDS: SULFAMETH./TRIMETHOPRIM DS 800MG/160MG TABLET PO SCH (09:26)
[2018-10-07] MEDS: ALLOPURINOL 100 MG TABLET PO SCH (09:26)
[2018-10-07] MEDS: OPIUM TINCTURE 1% 10 MG/ML ORAL.SOL PO SCH ×3 (09:26→20:39)
[2018-10-07] MEDS: DIPHENOXYLATE/ATROPINE TABLET PO SCH ×3 (09:26→20:39)
[2018-10-07] MEDS: PSYLLIUM PACKET PO SCH ×3 (09:26→20:39)
[2018-10-07 10:11] VITALS: BP 100/63
[2018-10-07] MEDS: HYDROcodone/APAP 5/325 TABLET PO PRN (14:45)
[2018-10-07 14:51] VITALS: BP 105/62
[2018-10-07] MEDS: ONDANSETRON ODT 4 MG SL SCH ×2 (15:15→20:39)
[2018-10-07 19:34] VITALS: BP 107/69
[2018-10-07] MEDS: ROSUVASTATIN 20 MG PO SCH (19:42)
[2018-10-07] MEDS: OxyconTIN ER 10 MG TAB.ER PO SCH (19:45)
[2018-10-07] MEDS: METOPROLOL TARTRATE 25 MG TABLET PO SCH (20:41)
[2018-10-08] VITALS (14 sets, daily range): BP systolic 72–138; BP diastolic 41–72
[2018-10-08] MEDS: ONDANSETRON ODT 4 MG SL SCH ×4 (04:43→18:54)
[2018-10-08] MEDS: ASPIRIN 81 MG TABLET EC PO SCH (04:43)
[2018-10-08] MEDS: HYDROcodone/APAP 5/325 TABLET PO PRN (04:57)
[2018-10-08 05:20] LABS: BASOPHILS # (AUTO) 0.02 x10^3/uL (0-0.1); BASOPHILS % (AUTO) 1 % (0-1); EOSINOPHILS # (AUTO) 0.13 x10^3/uL (0-0.4); EOSINOPHILS % (AUTO) 4 % (1-7); LYMPHOCYTES % (AUTO) 34 % (22-44); MD NO; MEAN CORPUSCULAR HEMOGLOBIN 29.6 pg (27.0-34.8); MEAN CORPUSCULAR HGB CONC 33.2 g/dL (32.4-35.8); MEAN CORPUSCULAR VOLUME 89.1 fL (80-100); MEAN PLATELET VOLUME 7.6 fL (7.4-10.4); MONOCYTES # (AUTO) 0.37 x10^3/uL (0.2-0.8); MONOCYTES % (AUTO) 11 % (2-9); NEUTROPHILS # (AUTO) 1.65 x10^3/uL (1.8-6.8); NEUTROPHILS % (AUTO) 51 % (42-75); PLATELET COUNT 169 x10^3/uL (130-400); RED BLOOD COUNT 3.46 x10^6/uL (3.82-5.3); RED CELL DISTRIBUTION WIDTH 18.6 % (9.6-15.2)
[2018-10-08 05:33] LABS: ALBUMIN 3.4 g/dL (3.4-5.0); ANION GAP 6 mmol/L (5-15); CALCIUM 8.9 mg/dL (8.5-10.1); CHLORIDE 107 mmol/L (98-107)
[2018-10-08 05:37] LABS: ALANINE AMINOTRANSFERASE 26 U/L (12-78); ALKALINE PHOSPHATASE 111 U/L (45-117); BILIRUBIN,TOTAL 0.2 mg/dL (0.2-1.0); CREATININE 1.44 mg/dL (0.55-1.02); TOTAL PROTEIN 6.8 g/dL (6.4-8.2)
[2018-10-08] MEDS ORDERED: SODIUM CHLORIDE 0.9% 1,000 ML IVBOLUS PRN (06:21)
[2018-10-08] MEDS ORDERED: NALOXONE 0.4 MG/ML, 1ML IVPush PRN (07:00)
[2018-10-08 07:18] LABS: ANION GAP 7 mmol/L (5-15); CALCIUM 8.4 mg/dL (8.5-10.1); CHLORIDE 108 mmol/L (98-107)
[2018-10-08 07:24] LABS: ALANINE AMINOTRANSFERASE 21 U/L (12-78); ALKALINE PHOSPHATASE 100 U/L (45-117); BILIRUBIN,TOTAL 0.3 mg/dL (0.2-1.0); CREATININE 1.53 mg/dL (0.55-1.02); TOTAL PROTEIN 6.1 g/dL (6.4-8.2); TROPONIN I < 0.015 ng/mL (0.000-0.045)
[2018-10-08] MEDS ORDERED: MAGNESIUM SULFATE 4 GM in SODIUM CHLORIDE 0.9% 100 ML IV ONE (08:00)
[2018-10-08] MEDS ORDERED: SODIUM CHLORIDE 0.9% 1,000ML IVBOLUS ONE ×2 (08:00→17:30)
[2018-10-08] MEDS: METOPROLOL TARTRATE 25 MG TABLET PO SCH ×2 (08:39→18:53)
[2018-10-08] MEDS ORDERED: LOPERAMIDE 2 MG CAPSULE PO SCH (09:00)
[2018-10-08] MEDS ORDERED: AMLODIPINE 10 MG TAB PO SCH (09:00)
[2018-10-08] MEDS: OPIUM TINCTURE 1% 10 MG/ML ORAL.SOL PO SCH ×3 (09:00→18:53)
[2018-10-08] MEDS: OxyconTIN ER 10 MG TAB.ER PO SCH ×2 (09:00→18:53)
[2018-10-08] MEDS ORDERED: PAROXETINE 20 MG TABLET PO SCH (09:00)
[2018-10-08] MEDS ORDERED: NALOXONE 0.4 MG/ML, 1ML ONE (09:01)
[2018-10-08] MEDS: PAROXETINE 40 MG PO SCH (13:00)
[2018-10-08] MEDS: ALLOPURINOL 100 MG TABLET PO SCH (13:11)
[2018-10-08] MEDS: PSYLLIUM PACKET PO SCH ×3 (13:12→21:26)
[2018-10-08] MEDS: ROSUVASTATIN 20 MG PO SCH (21:25)
[2018-10-08] MEDS: SODIUM CHLORIDE 0.9% 1,000 ML IV SCH (21:25)
[2018-10-08 21:36] LABS: ANION GAP 6 mmol/L (5-15); CALCIUM 8.3 mg/dL (8.5-10.1); CHLORIDE 112 mmol/L (98-107); CREATININE 1.94 mg/dL (0.55-1.02)
[2018-10-09] MEDS: SODIUM CHLORIDE 0.9% 1,000 ML IV SCH (00:26)
[2018-10-09] MEDS ORDERED: INSULIN REGULAR 100 UNITS/ML, 3ML VIAL IVPush ONE (00:30)
[2018-10-09] MEDS ORDERED: DEXTROSE 50%, 50ML SYRINGE IVPush ONE (00:30)
[2018-10-09] MEDS ORDERED: NOREPINEPHRINE 4 MG in SODIUM CHLORIDE 0.9% 246 ML IV PRN (01:00)
[2018-10-09] MEDS: ONDANSETRON ODT 4 MG SL SCH ×4 (01:05→22:40)
[2018-10-09 05:03] LABS: ALBUMIN 2.8 g/dL (3.4-5.0); ANION GAP 6 mmol/L (5-15); CALCIUM 8.5 mg/dL (8.5-10.1); CHLORIDE 114 mmol/L (98-107)
[2018-10-09 05:08] LABS: ALANINE AMINOTRANSFERASE 45 U/L (12-78); ALKALINE PHOSPHATASE 125 U/L (45-117); BILIRUBIN,TOTAL 0.3 mg/dL (0.2-1.0); CREATININE 1.63 mg/dL (0.55-1.02); TOTAL PROTEIN 5.5 g/dL (6.4-8.2)
[2018-10-09 05:12] LABS: BASOPHILS # (AUTO) 0.03 x10^3/uL (0-0.1); BASOPHILS % (AUTO) 1 % (0-1); EOSINOPHILS # (AUTO) 0.09 x10^3/uL (0-0.4); EOSINOPHILS % (AUTO) 2 % (1-7); LYMPHOCYTES % (AUTO) 27 % (22-44); MD NO; MEAN CORPUSCULAR HEMOGLOBIN 29.9 pg (27.0-34.8); MEAN CORPUSCULAR VOLUME 90.5 fL (80-100); MEAN PLATELET VOLUME 7.8 fL (7.4-10.4); MONOCYTES # (AUTO) 0.59 x10^3/uL (0.2-0.8); MONOCYTES % (AUTO) 13 % (2-9); NEUTROPHILS # (AUTO) 2.75 x10^3/uL (1.8-6.8); NEUTROPHILS % (AUTO) 58 % (42-75); PLATELET COUNT 169 x10^3/uL (130-400); RED BLOOD COUNT 3.14 x10^6/uL (3.82-5.3); RED CELL DISTRIBUTION WIDTH 19.1 % (9.6-15.2)
[2018-10-09] MEDS ORDERED: NACL IV SCH ×2 (07:00→16:00)
[2018-10-09] MEDS ORDERED: SODIUM BICARB 8.4% IV SCH ×2 (07:00→16:00)
[2018-10-09] MEDS ORDERED: D5 IV SCH ×2 (07:00→16:00)
[2018-10-09] MEDS ORDERED: OxyconTIN ER 10 MG TAB.ER PO SCH (09:00)
[2018-10-09] MEDS: ASPIRIN 81 MG TABLET EC PO SCH (09:12)
[2018-10-09] MEDS: PAROXETINE 40 MG PO SCH (09:13)
[2018-10-09] MEDS: PSYLLIUM PACKET PO SCH ×3 (09:13→21:08)
[2018-10-09] MEDS: CHOLESTYRAMINE LIGHT 4GM PACKET PO SCH ×2 (09:13→22:22)
[2018-10-09] MEDS: ALLOPURINOL 100 MG TABLET PO SCH (09:13)
[2018-10-09] MEDS ORDERED: ACETAMINOPHEN 325 MG TABLET PO PRN (15:30)
[2018-10-09 19:17] VITALS: BP 149/74
[2018-10-09] MEDS: ROSUVASTATIN 20 MG PO SCH (20:54)
[2018-10-10 01:13] VITALS: BP 129/72
[2018-10-10] MEDS: ONDANSETRON ODT 4 MG SL SCH ×4 (04:46→23:00)
[2018-10-10] MEDS: ASPIRIN 81 MG TABLET EC PO SCH (05:45)
[2018-10-10 06:32] LABS: CHLORIDE 108 mmol/L (98-107)
[2018-10-10 06:40] LABS: BASOPHILS # (AUTO) 0.02 x10^3/uL (0-0.1); BASOPHILS % (AUTO) 1 % (0-1); EOSINOPHILS # (AUTO) 0.08 x10^3/uL (0-0.4); EOSINOPHILS % (AUTO) 4 % (1-7); LYMPHOCYTES # (AUTO) 0.35 x10^3/uL (1-3.4); LYMPHOCYTES % (AUTO) 16 % (22-44); MD NO; MEAN CORPUSCULAR HEMOGLOBIN 30.4 pg (27.0-34.8); MEAN CORPUSCULAR HGB CONC 34.2 g/dL (32.4-35.8); MEAN CORPUSCULAR VOLUME 88.8 fL (80-100); MEAN PLATELET VOLUME 7.4 fL (7.4-10.4); MONOCYTES # (AUTO) 0.29 x10^3/uL (0.2-0.8); MONOCYTES % (AUTO) 14 % (2-9); NEUTROPHILS # (AUTO) 1.41 x10^3/uL (1.8-6.8); NEUTROPHILS % (AUTO) 66 % (42-75); PLATELET COUNT 144 x10^3/uL (130-400); RED BLOOD COUNT 3.46 x10^6/uL (3.82-5.3); RED CELL DISTRIBUTION WIDTH 18.2 % (9.6-15.2)
[2018-10-10 06:46] LABS: ALANINE AMINOTRANSFERASE 41 U/L (12-78); ALBUMIN 3.3 g/dL (3.4-5.0); ALKALINE PHOSPHATASE 142 U/L (45-117); ANION GAP 6 mmol/L (5-15); BILIRUBIN,TOTAL 0.4 mg/dL (0.2-1.0); CREATININE 0.85 mg/dL (0.55-1.02)
[2018-10-10 07:27] VITALS: BP 136/82
[2018-10-10] MEDS: PAROXETINE 40 MG PO SCH (09:00)
[2018-10-10] MEDS: PSYLLIUM PACKET PO SCH ×3 (09:02→21:00)
[2018-10-10] MEDS: ALLOPURINOL 100 MG TABLET PO SCH (09:02)
[2018-10-10] MEDS: CHOLESTYRAMINE LIGHT 4GM PACKET PO SCH ×2 (09:02→21:00)
[2018-10-10] MEDS: LOPERAMIDE 2 MG CAPSULE PO SCH ×3 (09:22→21:23)
[2018-10-10] MEDS ORDERED: MAGNESIUM SULFATE PMX 2GM/50ML 50 ML IV ONE (10:30)
[2018-10-10] MEDS ORDERED: ENOXAPARIN 40 MG/0.4 ML SQ SCH (15:30)
[2018-10-10 19:22] VITALS: BP 135/84
[2018-10-10] MEDS: ROSUVASTATIN 20 MG PO SCH (21:00)
[2018-10-11 03:04] VITALS: BP 133/84
[2018-10-11] MEDS: LOPERAMIDE 2 MG CAPSULE PO SCH ×2 (04:56→08:46)
[2018-10-11] MEDS: ASPIRIN 81 MG TABLET EC PO SCH (04:56)
[2018-10-11] MEDS: ONDANSETRON ODT 4 MG SL SCH ×2 (04:56→10:54)
[2018-10-11 05:09] LABS: MEAN CORPUSCULAR HEMOGLOBIN 29.8 pg (27.0-34.8); MEAN CORPUSCULAR HGB CONC 33.5 g/dL (32.4-35.8); MEAN CORPUSCULAR VOLUME 88.9 fL (80-100); MEAN PLATELET VOLUME 7.4 fL (7.4-10.4); PLATELET COUNT 165 x10^3/uL (130-400); RED BLOOD COUNT 3.83 x10^6/uL (3.82-5.3); RED CELL DISTRIBUTION WIDTH 18.3 % (9.6-15.2)
[2018-10-11 05:20] LABS: ALANINE AMINOTRANSFERASE 34 U/L (12-78); ALBUMIN 3.3 g/dL (3.4-5.0); ANION GAP 6 mmol/L (5-15); CALCIUM 9.3 mg/dL (8.5-10.1); CHLORIDE 107 mmol/L (98-107)
[2018-10-11 05:23] LABS: ALKALINE PHOSPHATASE 137 U/L (45-117); BILIRUBIN,TOTAL 0.5 mg/dL (0.2-1.0); CREATININE 0.93 mg/dL (0.55-1.02); TOTAL PROTEIN 6.8 g/dL (6.4-8.2)
[2018-10-11 06:04] LABS: BASOPHILS # (AUTO) 0.02 x10^3/uL (0-0.1); BASOPHILS % (AUTO) 1 % (0-1); EOSINOPHILS # (AUTO) 0.07 x10^3/uL (0-0.4); EOSINOPHILS % (AUTO) 3 % (1-7); LYMPHOCYTES # (AUTO) 0.58 x10^3/uL (1-3.4); LYMPHOCYTES % (AUTO) 28 % (22-44); MD SCAN; MONOCYTES # (AUTO) 0.33 x10^3/uL (0.2-0.8); MONOCYTES % (AUTO) 16 % (2-9); NEUTROPHILS # (AUTO) 1.09 x10^3/uL (1.8-6.8); NEUTROPHILS % (AUTO) 52 % (42-75)
[2018-10-11 06:41] VITALS: BP 132/86
[2018-10-11] MEDS: PAROXETINE 40 MG PO SCH (08:46)
[2018-10-11] MEDS: CHOLESTYRAMINE LIGHT 4GM PACKET PO SCH (08:46)
[2018-10-11] MEDS: PSYLLIUM PACKET PO SCH (08:46)
[2018-10-11] MEDS: ALLOPURINOL 100 MG TABLET PO SCH (08:46)
[2018-10-11] MEDS ORDERED: CHOL239. PO (10:14)
[2018-10-11] MEDS ORDERED: PSYL3.4P8 PO (10:14)
[2018-10-11] MEDS ORDERED: LOPE2CAP PO (10:14)
[2018-10-11] MEDS ORDERED: HYDR-3240 PO (11:18)
== END 2018-10-11 11:30 | disposition home or self-care (01) | DRG 393 ==
LOC: ED 05:10 → 3NW 07:50 → ED 07:50 → 3NW 08:42 → CCU 10-08 20:42 → ICU 10-09 09:33 → 3NW 10-09 17:19 → DCLOUNGE 10-11 11:18
PROVIDERS: ADMIT Specialist; ATTEND Specialist
PROC: 30233N1 Transfusion of Nonautologous Red Blood Cells into Peripheral Vein, Percutaneous Approach (ICD-10-PCS; principal; 2018-10-02)
DX: K52.0 Gastroenteritis and colitis due to radiation (principal); N17.0 Acute kidney failure with tubular necrosis; J96.00 Acute respiratory failure, unspecified whether with hypoxia or hypercapnia; E87.2 Acidosis; I50.32 Chronic diastolic (congestive) heart failure; K56.1 Intussusception; C51.9 Malignant neoplasm of vulva, unspecified; E86.0 Dehydration; L59.8 Other specified disorders of the skin and subcutaneous tissue related to radiation; E83.42 Hypomagnesemia; M10.9 Gout, unspecified; F32.9 Major depressive disorder, single episode, unspecified; I95.9 Hypotension, unspecified; R00.1 Bradycardia, unspecified; I11.0 Hypertensive heart disease with heart failure; D64.9 Anemia, unspecified; D70.9 Neutropenia, unspecified; E78.5 Hyperlipidemia, unspecified; E87.5 Hyperkalemia; I27.20 Pulmonary hypertension, unspecified; I45.10 Unspecified right bundle-branch block; I73.9 Peripheral vascular disease, unspecified; J44.9 Chronic obstructive pulmonary disease, unspecified; N76.2 Acute vulvitis; Y92.89 Other specified places as the place of occurrence of the external cause; Z85.44 Personal history of malignant neoplasm of other female genital organs; Z86.79 Personal history of other diseases of the circulatory system; Z87.891 Personal history of nicotine dependence; Z90.49 Acquired absence of other specified parts of digestive tract; Z90.710 Acquired absence of both cervix and uterus; Y84.2 Radiological procedure and radiotherapy as the cause of abnormal reaction of the patient, or of later complication, without mention of misadventure at the time of the procedure; Y76.8 Miscellaneous obstetric and gynecological devices associated with adverse incidents, not elsewhere classified
CPT/HCPCS: 0399T; 36415; 36600; 71045; 74177; 78582; 80048; 80053; 81003; 82803; 82962; 83735; 83880; 84100; 84484; 85025; 86850; 86900; 86923; 87070; 87081; 87205; 87324; 89055; 93005; 93306; 93970; 96361; 96374; 96375; G0378; J1650; J2310; J2405; J2997; J3475; Q0162; Q9967; A9540; A9558; C9898; J1170; J3480; J7030; J7050; P9016; Q0163

== ENCOUNTER → 2018-10-15 | Outpatient (CLI) | payer MEDICARE, OTHER ==
[~2018-10-15] MED LIST changes: +CHOL239. PO; +DIPH1TAB PO; +HYDR-3237 PO; +HYDR-3240 PO; +ONDA4TAB13 SL; +OXYC10TA47 PO; +PROC10TA2 PO; +PSYL3.4P8 PO; +SULF1TAB24 PO
[2018-10-15 10:59] LABS: ALANINE AMINOTRANSFERASE 29 U/L (12-78); ALBUMIN 3.5 g/dL (3.4-5.0); ANION GAP 7 mmol/L (5-15); CALCIUM 9.6 mg/dL (8.5-10.1); CHLORIDE 103 mmol/L (98-107); CREATININE 1.27 mg/dL (0.55-1.02)
[2018-10-15 11:01] LABS: ALKALINE PHOSPHATASE 144 U/L (45-117); BILIRUBIN,TOTAL 0.5 mg/dL (0.2-1.0); TOTAL PROTEIN 7.6 g/dL (6.4-8.2)
[2018-10-15 11:08] LABS: BASOPHILS # (AUTO) 0.02 x10^3/uL (0-0.1); BASOPHILS % (AUTO) 1 % (0-1); EOSINOPHILS # (AUTO) 0.06 x10^3/uL (0-0.4); EOSINOPHILS % (AUTO) 2 % (1-7); LYMPHOCYTES # (AUTO) 1.02 x10^3/uL (1-3.4); LYMPHOCYTES % (AUTO) 26 % (22-44); MD NO; MEAN CORPUSCULAR HEMOGLOBIN 29.6 pg (27.0-34.8); MEAN CORPUSCULAR HGB CONC 32.8 g/dL (32.4-35.8); MEAN CORPUSCULAR VOLUME 90.2 fL (80-100); MONOCYTES # (AUTO) 0.48 x10^3/uL (0.2-0.8); MONOCYTES % (AUTO) 12 % (2-9); NEUTROPHILS # (AUTO) 2.37 x10^3/uL (1.8-6.8); NEUTROPHILS % (AUTO) 60 % (42-75); PLATELET COUNT 230 x10^3/uL (130-400); RED BLOOD COUNT 4.01 x10^6/uL (3.82-5.3); RED CELL DISTRIBUTION WIDTH 18.8 % (9.6-15.2)
== END | disposition home or self-care (01) ==
LOC: LAB 10:30
PROVIDERS: ATTEND Physician Assistant
DX: C51.1 Malignant neoplasm of labium minus (principal); E83.42 Hypomagnesemia
CPT/HCPCS: 36415; 80053; 83735; 85025

== ENCOUNTER → 2018-10-22 | Outpatient (CLI) | payer MEDICARE, OTHER ==
[2018-10-22 11:47] LABS: BASOPHILS # (AUTO) 0.02 x10^3/uL (0-0.1); BASOPHILS % (AUTO) 1 % (0-1); EOSINOPHILS # (AUTO) 0.07 x10^3/uL (0-0.4); EOSINOPHILS % (AUTO) 2 % (1-7); LYMPHOCYTES # (AUTO) 0.71 x10^3/uL (1-3.4); LYMPHOCYTES % (AUTO) 20 % (22-44); MD NO; MEAN CORPUSCULAR HEMOGLOBIN 30.6 pg (27.0-34.8); MEAN CORPUSCULAR HGB CONC 33.8 g/dL (32.4-35.8); MEAN CORPUSCULAR VOLUME 90.6 fL (80-100); MEAN PLATELET VOLUME 7.7 fL (7.4-10.4); MONOCYTES # (AUTO) 0.22 x10^3/uL (0.2-0.8); MONOCYTES % (AUTO) 6 % (2-9); NEUTROPHILS # (AUTO) 2.47 x10^3/uL (1.8-6.8); NEUTROPHILS % (AUTO) 71 % (42-75); PLATELET COUNT 250 x10^3/uL (130-400); RED BLOOD COUNT 3.61 x10^6/uL (3.82-5.3); RED CELL DISTRIBUTION WIDTH 18.4 % (9.6-15.2)
[2018-10-22 12:21] LABS: CHLORIDE 107 mmol/L (98-107)
[2018-10-22 12:37] LABS: ALANINE AMINOTRANSFERASE 25 U/L (12-78); ALBUMIN 3.4 g/dL (3.4-5.0); ALKALINE PHOSPHATASE 119 U/L (45-117); ANION GAP 6 mmol/L (5-15); BILIRUBIN,TOTAL 0.4 mg/dL (0.2-1.0); CALCIUM 9.2 mg/dL (8.5-10.1); CREATININE 1.02 mg/dL (0.55-1.02); TOTAL PROTEIN 7.2 g/dL (6.4-8.2)
== END | disposition home or self-care (01) ==
LOC: CFH 11:28
PROVIDERS: ATTEND Specialist
DX: C51.1 Malignant neoplasm of labium minus (principal)
CPT/HCPCS: 36415; 80053; 83735; 85025

== ENCOUNTER → 2018-10-29 | Outpatient (CLI) | payer MEDICARE, OTHER ==
[2018-10-29 11:09] LABS: BASOPHILS # (AUTO) 0.02 x10^3/uL (0-0.1); BASOPHILS % (AUTO) 1 % (0-1); EOSINOPHILS # (AUTO) 0.09 x10^3/uL (0-0.4); EOSINOPHILS % (AUTO) 3 % (1-7); LYMPHOCYTES # (AUTO) 0.61 x10^3/uL (1-3.4); LYMPHOCYTES % (AUTO) 17 % (22-44); MD NO; MEAN CORPUSCULAR HEMOGLOBIN 30.4 pg (27.0-34.8); MEAN CORPUSCULAR HGB CONC 33.3 g/dL (32.4-35.8); MEAN CORPUSCULAR VOLUME 91.3 fL (80-100); MEAN PLATELET VOLUME 7.9 fL (7.4-10.4); MONOCYTES # (AUTO) 0.27 x10^3/uL (0.2-0.8); MONOCYTES % (AUTO) 8 % (2-9); NEUTROPHILS # (AUTO) 2.56 x10^3/uL (1.8-6.8); NEUTROPHILS % (AUTO) 72 % (42-75); PLATELET COUNT 214 x10^3/uL (130-400); RED BLOOD COUNT 3.48 x10^6/uL (3.82-5.3); RED CELL DISTRIBUTION WIDTH 18.6 % (9.6-15.2)
[2018-10-29 11:21] LABS: ALANINE AMINOTRANSFERASE 26 U/L (12-78); ALBUMIN 3.5 g/dL (3.4-5.0); ANION GAP 6 mmol/L (5-15); CALCIUM 9.2 mg/dL (8.5-10.1); CHLORIDE 108 mmol/L (98-107)
[2018-10-29 11:24] LABS: ALKALINE PHOSPHATASE 107 U/L (45-117); BILIRUBIN,TOTAL 0.4 mg/dL (0.2-1.0); CREATININE 1.06 mg/dL (0.55-1.02); TOTAL PROTEIN 7.1 g/dL (6.4-8.2)
== END | disposition home or self-care (01) ==
LOC: CFH 10:58
PROVIDERS: ATTEND Specialist
DX: C51.1 Malignant neoplasm of labium minus (principal); E83.42 Hypomagnesemia
CPT/HCPCS: 36415; 80053; 83735; 85025

== ENCOUNTER 2018-11-11 07:56 | Outpatient (CLI) | payer MEDICARE, OTHER | END 2018-11-11 23:59 | disposition home or self-care (01) | LOC: ROC 07:56 → EDSTATUS 06-24 13:25 | PROVIDERS: ATTEND Radiology Radiation Oncology | DX: C51.0 Malignant neoplasm of labium majus (principal) | CPT/HCPCS: G0463 ==

== ENCOUNTER → 2018-12-19 | Outpatient (CLI) | payer MEDICARE, OTHER | END | disposition home or self-care (01) | LOC: ROC 09:48 | PROVIDERS: ATTEND Radiology Radiation Oncology | DX: C51.0 Malignant neoplasm of labium majus (principal); Z79.899 Other long term (current) drug therapy | CPT/HCPCS: G0463 ==